=== PATIENT | female | born 1950 | race Caucasian/White ===

== ENCOUNTER 2023-10-03 05:46 | Inpatient (IN) | payer MEDICARE ==
[2023-10-03] MEDS: ONDANSETRON 4 MG/2 ML VIAL IVP STA ×2 (06:23→08:23)
[2023-10-03 06:24] LABS: Basophils % (A) 0 %; Eosinophils # (A) 0.2 k/uL (0-0.7); Eosinophils % (A) 1 %; HGB 14.4 gm/dL (11.4-16.0); Lymphocytes # (A) 1.8 k/uL (1.0-4.8); Lymphocytes % (A) 16 %; MCH 32.6 pg (25.0-35.0); MCHC 33.4 g/dL (31.0-37.0); MCV 97.5 fL (80.0-100.0); Mean Platelet Volume 9.2; Monocytes # (A) 0.6 k/uL (0-1.0); Monocytes % (A) 6 %; Neutrophils # (A) 8.4 k/uL (1.3-7.7); Neutrophils % (A) 76 %; Platelet Count 216 k/uL (150-450); RBC 4.41 m/uL (3.80-5.40); RDW 12.8 % (11.5-15.5)
[2023-10-03] MEDS: MORPHINE SULFATE 2 MG/ML SYRINGE IVP ONE (06:24)
[2023-10-03] MEDS: KETOROLAC 15 MG/ML 1 ML VIAL IVP STA (06:26)
[2023-10-03 06:35] LABS: ALT 20 U/L (4-34); African American GFR (CKD) 56 (>60 ml/min/1.73 sqM); Albumin 4.2 g/dL (3.5-5.0); Anion Gap 14 mmol/L; Blood Urea Nitrogen 20 mg/dL (7-17); Carbon Dioxide 21 mmol/L (22-30); Chloride 94 mmol/L (98-107); Creatine Kinase 148 U/L (30-135); Glucose 70 mg/dL (74-99); Non-African American GFR(CKD) 49 (>60 ml/min/1.73 sqM); Sodium 129 mmol/L (137-145); Total Bilirubin 0.7 mg/dL (0.2-1.3); Total Protein 7.1 g/dL (6.3-8.2)
[2023-10-03 06:36] LABS: AST 72 U/L (14-36); Alkaline Phosphatase 72 U/L (38-126); Magnesium 1.3 mg/dL (1.6-2.3); Potassium 4.8 mmol/L (3.5-5.1)
[2023-10-03 07:02] LABS: Glucose,Whole Blood 62 mg/dL (70-110)
--- NOTE | 2023-10-03 07:04 | ED ---
General Adult HPI - General Chief complaint: Back Pain/Injury Stated complaint: Back pain Time Seen by Provider: 10/03/23 05:59 Source: patient, EMS, RN notes reviewed Mode of arrival: EMS Limitations: no limitations - History of Present Illness Initial comments: 73-year-old female presents emergency department with chief complaint of fall, pain. Patient states that she fell on Wednesday in which her legs just gave out. States this happens often she has frequent falls. Patient states that she has right knee pain from the fall but also states she just hurts all over. She states she has numbness of her legs which is ongoing and states that she has been told she has neuropathy. She denies any chest pain. Patient states that she is on multiple medications and recently saw a new primary care physician. - Related Data Allergies Allergy/AdvReac Type Severity Reaction Status Date / Time Penicillins Allergy Nausea & Verified 10/03/23 05:54 Vomiting Review of Systems ROS Statement: Those systems with pertinent positive or pertinent negative responses have been documented in the HPI. ROS Other: All systems not noted in ROS Statement are negative. Past Medical History Past Medical History: Diabetes Mellitus, Hyperlipidemia, Hypertension, Rheumatoid Arthritis (RA), Sleep Apnea/CPAP/BIPAP History of Any Multi-Drug Resistant Organisms: None Reported Past Surgical History: No Surgical Hx Reported Past Psychological History: No Psychological Hx Reported Smoking Status: Current every day smoker Past Alcohol Use History: Daily Past Drug Use History: None Reported General Exam Limitations: no limitations General appearance: alert, in no apparent distress Head exam: Present: atraumatic, normocephalic, normal inspection Eye exam: Present: normal appearance, PERRL, EOMI. Absent: scleral icterus, conjunctival injection, periorbital swelling ENT exam: Present: normal exam, normal oropharynx, mucous membranes moist Neck exam: Present: normal inspection, full ROM. Absent: tenderness, meningismus, lymphadenopathy Respiratory exam: Present: normal lung sounds bilaterally. Absent: respiratory distress, wheezes, rales, rhonchi, stridor Cardiovascular Exam: Present: regular rate, normal rhythm, normal heart sounds. Absent: systolic murmur, diastolic murmur, rubs, gallop, clicks GI/Abdominal exam: Present: soft, normal bowel sounds. Absent: distended, tenderness, guarding, rebound, rigid Extremities exam: Present: other (Bilateral feet there is some mild erythematous brawny discoloration of the digits chronic vascular issues abrasion right knee, mild ecchymosis, full range of motion neurovascular intact remaining extremity exam within normal limits) Neurological exam: Present: alert, oriented X3 Skin exam: Present: warm, dry, intact, normal color. Absent: rash Course Vital Signs 10/03/23 10/03/23 05:48 07:35 Temperature 97.5 F L 97.6 F Pulse Rate 64 63 Respiratory 18 20 Rate Blood Pressure 117/64 126/68 O2 Sat by Pulse 97 94 L Oximetry Medical Decision Making - Medical Decision Making Was pt. sent in by a medical professional or institution (, PA, DIRECTOR OF HOTEL OPERATIONS, urgent care, hospital, or detention...) When possible be specific @ -No Did you speak to anyone other than the patient for history (EMS, parent, family, police, friend...)? What history was obtained from this source @ -No Did you review nursing and triage notes (agree or disagree)? Why? @ -I reviewed and agree with nursing and triage notes Were old charts reviewed (outside hosp., previous admission, EMS record, old EKG, old radiological studies, urgent care reports/EKG's, detention records)? Report findings @ -No old charts were reviewed Differential Diagnosis (chest pain, altered mental status, abdominal pain women, abdominal pain men, vaginal bleeding, weakness, fever, dyspnea, syncope, headache, dizziness, GI bleed, back pain, seizure, CVA, palpatations, mental health, musculoskeletal)? @ -[Differential Weakness: Hypoglycemia, shock, sepsis, hyponatremia, anemia, infection, CO, ETOH, adverse medicine reaction, overdose, stroke, this is not meant to be an all-inclusive list. EKG interpreted by me (3pts min.). @ -None X-rays interpreted by me (1pt min.). @ -[Chest x-ray shows evidence of left lower lobe pleural effusion, pneumonia X-ray right knee showing lateral tibial plateau avulsion fracture X-ray lumbar spine showing degenerative changes CT interpreted by me (1pt min.). @ -See to right knee is showing lateral tibial plateau fracture no other acute process U/S interpreted by me (1pt. min.). @ -[None done What testing was considered but not performed or refused? (CT, X-rays, U/S, labs)? Why? @ -None What meds were considered but not given or refused? Why? @ -None Did you discuss the management of the patient with other professionals (professionals i.e. , PA, DIRECTOR OF HOTEL OPERATIONS, lab, RT, psych nurse, high school social science teacher, musical engineer, teacher, chief credit officer, rn case manager)? Give summary @ -[Dr. Upton regarding x-ray and CT findings of tibial plateau fracture there is no emergent treatment patient does not need to be admitted for tibial plateau fracture. Dr. Stern for admission secondary to dehydration, hyponatremia, hypomagnesemia, alcohol abuse multiple falls Was smoking cessation discussed for >3mins.? @ -No Was critical care preformed (if so, how long)? @ -No Were there social determinants of health that impacted care today? How? (Homelessness, low income, unemployed, alcoholism, drug addiction, transportation, low edu. Level, literacy, decrease access to med. care, halfway, rehab)? @ -No Was there de-escalation of care discussed even if they declined (Discuss DNR or withdrawal of care, Hospice)? DNR status @ -No What co-morbidities impacted this encounter? (DM, HTN, Smoking, COPD, CAD, Cancer, CVA, ARF, Chemo, Hep., AIDS, mental health diagnosis, sleep apnea, morbid obesity)? @ -Alcohol abuse, diabetes, hypertension Was patient admitted / discharged? Hospital course, mention meds given and route, prescriptions, significant lab abnormalities, going to OR and other pertinent info. @ -[Admitted patient is presenting for generalized weakness, multiple falls. Patient states that she has been supplementing her pain control with alcohol intake. Patient states that she was on [place] prior. Patient states that she has had falls as her legs been giving out on her. She mild hyponatremia, hypomagnesemia, hyperglycemia. This more likely is related to poor fluid intake, alcohol abuse. Patient was started on IV antibiotics, blood cultures were drawn. Patient will be admitted with multiple consults. Undiagnosed new problem with uncertain prognosis? @ -No Drug Therapy requiring intensive monitoring for toxicity (Heparin, Nitro, Insulin, Cardizem)? @ -No Were any procedures done? @ -No Diagnosis/symptom? @ -Multiple falls, pneumonia, weakness, hyponatremia, hypomagnesemia, tibial plateau fracture Acute, or Chronic, or Acute on Chronic? @ -[Acute Uncomplicated (without systemic symptoms) or Complicated (systemic symptoms)? @ -Complicated Side effects of treatment? @ -[No Exacerbation, Progression, or Severe Exacerbation? @ -No Poses a threat to life or bodily function? How? (Chest pain, USA, CO, pneumonia, PE, COPD, DKA, ARF, appy, cholecystitis, CVA, Diverticulitis, Homicidal, Suicidal, threat to staff... and all critical care pts) @ -No - Lab Data Result diagrams: 10/03/23 06:15 10/03/23 06:15 Lab Results 10/03/23 10/03/23 10/03/23 Range/Units 06:15 06:15 07:00 WBC 11.0 H (3.8-10.6) k/uL RBC 4.41 (3.80-5.40) m/uL Hgb 14.4 (11.4-16.0) gm/dL Hct 43.0 (34.0-46.0) % MCV 97.5 (80.0-100.0) fL MCH 32.6 (25.0-35.0) pg MCHC 33.4 (31.0-37.0) g/dL RDW 12.8 (11.5-15.5) % Plt Count 216 (150-450) k/uL MPV 9.2 Neutrophils % 76 % Lymphocytes % 16 % Monocytes % 6 % Eosinophils % 1 % Basophils % 0 % Neutrophils # 8.4 H (1.3-7.7) k/uL Lymphocytes # 1.8 (1.0-4.8) k/uL Monocytes # 0.6 (0-1.0) k/uL Eosinophils # 0.2 (0-0.7) k/uL Basophils # 0.0 (0-0.2) k/uL Sodium 129 L (137-145) mmol/L Potassium 4.8 (3.5-5.1) mmol/L Chloride 94 L (98-107) mmol/L Carbon Dioxide 21 L (22-30) mmol/L Anion Gap 14 mmol/L BUN 20 H (7-17) mg/dL Creatinine 1.14 H (0.52-1.04) mg/dL Est GFR (CKD-EPI)AfAm 56 (>60 ml/min/1.73 sqM) Est GFR (CKD-EPI)NonAf 49 (>60 ml/min/1.73 sqM) Glucose 70 L (74-99) mg/dL POC Glucose (mg/dL) 62 L (70-110) mg/dL POC Glu Technical Expert ID Mindy Lam Calcium 10.0 (8.4-10.2) mg/dL Magnesium 1.3 L (1.6-2.3) mg/dL Total Bilirubin 0.7 (0.2-1.3) mg/dL AST 72 H (14-36) U/L ALT 20 (4-34) U/L Alkaline Phosphatase 72 (38-126) U/L Creatine Kinase 148 H (30-135) U/L Total Protein 7.1 (6.3-8.2) g/dL Albumin 4.2 (3.5-5.0) g/dL Serum Alcohol mg/dL Influenza Type A (PCR) (Not Detectd) Influenza Type B (PCR) (Not Detectd) RSV (PCR) (Not Detectd) SARS-CoV-2 (PCR) (Not Detectd) 10/03/23 10/03/23 10/03/23 Range/Units 07:03 07:22 07:43 WBC (3.8-10.6) k/uL RBC (3.80-5.40) m/uL Hgb (11.4-16.0) gm/dL Hct (34.0-46.0) % MCV (80.0-100.0) fL MCH (25.0-35.0) pg MCHC (31.0-37.0) g/dL RDW (11.5-15.5) % Plt Count (150-450) k/uL MPV Neutrophils % % Lymphocytes % % Monocytes % % Eosinophils % % Basophils % % Neutrophils # (1.3-7.7) k/uL Lymphocytes # (1.0-4.8) k/uL Monocytes # (0-1.0) k/uL Eosinophils # (0-0.7) k/uL Basophils # (0-0.2) k/uL Sodium (137-145) mmol/L Potassium (3.5-5.1) mmol/L Chloride (98-107) mmol/L Carbon Dioxide (22-30) mmol/L Anion Gap mmol/L BUN (7-17) mg/dL Creatinine (0.52-1.04) mg/dL Est GFR (CKD-EPI)AfAm (>60 ml/min/1.73 sqM) Est GFR (CKD-EPI)NonAf (>60 ml/min/1.73 sqM) Glucose (74-99) mg/dL POC Glucose (mg/dL) 68 L (70-110) mg/dL POC Glu Technical Expert ID Kerry Clement Calcium (8.4-10.2) mg/dL Magnesium (1.6-2.3) mg/dL Total Bilirubin (0.2-1.3) mg/dL AST (14-36) U/L ALT (4-34) U/L Alkaline Phosphatase (38-126) U/L Creatine Kinase (30-135) U/L Total Protein (6.3-8.2) g/dL Albumin (3.5-5.0) g/dL Serum Alcohol <10 mg/dL Influenza Type A (PCR) Not Detected (Not Detectd) Influenza Type B (PCR) Not Detected (Not Detectd) RSV (PCR) Not Detected (Not Detectd) SARS-CoV-2 (PCR) Not Detected (Not Detectd) 10/03/23 Range/Units 08:15 WBC (3.8-10.6) k/uL RBC (3.80-5.40) m/uL Hgb (11.4-16.0) gm/dL Hct (34.0-46.0) % MCV (80.0-100.0) fL MCH (25.0-35.0) pg MCHC (31.0-37.0) g/dL RDW (11.5-15.5) % Plt Count (150-450) k/uL MPV Neutrophils % % Lymphocytes % % Monocytes % % Eosinophils % % Basophils % % Neutrophils # (1.3-7.7) k/uL Lymphocytes # (1.0-4.8) k/uL Monocytes # (0-1.0) k/uL Eosinophils # (0-0.7) k/uL Basophils # (0-0.2) k/uL Sodium (137-145) mmol/L Potassium (3.5-5.1) mmol/L Chloride (98-107) mmol/L Carbon Dioxide (22-30) mmol/L Anion Gap mmol/L BUN (7-17) mg/dL Creatinine (0.52-1.04) mg/dL Est GFR (CKD-EPI)AfAm (>60 ml/min/1.73 sqM) Est GFR (CKD-EPI)NonAf (>60 ml/min/1.73 sqM) Glucose (74-99) mg/dL POC Glucose (mg/dL) 120 H (70-110) mg/dL POC Glu Technical Expert ID Magi Fuentes Calcium (8.4-10.2) mg/dL Magnesium (1.6-2.3) mg/dL Total Bilirubin (0.2-1.3) mg/dL AST (14-36) U/L ALT (4-34) U/L Alkaline Phosphatase (38-126) U/L Creatine Kinase (30-135) U/L Total Protein (6.3-8.2) g/dL Albumin (3.5-5.0) g/dL Serum Alcohol mg/dL Influenza Type A (PCR) (Not Detectd) Influenza Type B (PCR) (Not Detectd) RSV (PCR) (Not Detectd) SARS-CoV-2 (PCR) (Not Detectd) Disposition Clinical Impression: Dehydration, Hypomagnesemia, Pneumonia, Back pain, Weakness, Multiple falls, Tibial plateau fracture, right Disposition: ADMITTED IP TO THIS HOSP Is patient prescribed a controlled substance at d/c from ED?: No Referrals: None,Stated [REFERRING] - 1-2 days Time of Disposition: 08:43
--- NOTE | 2023-10-03 07:19 | XR ---
EXAMINATION TYPE: XR chest 2V DATE OF EXAM: 10/03/2023 COMPARISON: NONE HISTORY: Chest pain TECHNIQUE: Frontal and lateral views of the chest are obtained. FINDINGS: There is a hazy opacity obscuring the left hemidiaphragm and costophrenic angle most likel y a combination of small amount of pleural effusion and possibly left lower lobe atelectasis/pneumoni a. The right lung is clear. There is no pneumothorax. The pulmonary vasculature is not congested. The osseous structures are inta ct IMPRESSION: Acute cardiopulmonary disease involving left lung base as described above.
[2023-10-03] MEDS: MAGNESIUM OXIDE 400 MG TAB PO STA (07:20)
--- NOTE | 2023-10-03 07:22 | XR ---
Lumbar spine HISTORY: Pain COMPARISON: None TECHNIQUE: 3 views lumbar spine were obtained Throughout the lumbar spine there is moderate spondylosis and mild to moderate disc space narrowing g reatest at the L5-S1 level consistent with degenerative disc disease. There is no lumbar spine fractu re or malalignment. There is facet arthropathy at the L4-5 and L5-S1 levels. The sacrum and SI joints appear normal. IMPRESSION: 1. Multilevel [id number] degenerative disc disease moderate at the L4-5 at the L5-S1 level. 2. Facet arthropathy at the L4-5 and L5-S1 levels. 3. No lumbar spine fracture or malalignment.
[2023-10-03 07:23] LABS: Glucose,Whole Blood 68 mg/dL (70-110)
--- NOTE | 2023-10-03 07:26 | XR ---
Right knee HISTORY: Pain following fall. COMPARISON: None TECHNIQUE: 3 views right knee were obtained. FINDINGS: There is a tiny avulsion fracture of the lateral tibial plateau (Segond fracture). This is often asso ciated with a soft tissue injury involving the lateral joint capsule with associated ACL injury.. There is mild narrowing of the medial compartment of the knee indicating mild osteoarthritis. The pat ellofemoral compartment is normal and is no joint effusion. IMPRESSION: Segond fracture as described above.
[2023-10-03 08:16] LABS: Glucose,Whole Blood 120 mg/dL (70-110)
--- NOTE | 2023-10-03 08:16 | CT ---
EXAMINATION TYPE: CT knee RT wo con DATE OF EXAM: 10/03/2023 COMPARISON: None HISTORY: Fall onto RT knee, knee pain, unable to stand. CT DLP: 103.4 mGycm Automated exposure control for dose reduction was used. FINDINGS: There is a small lateral tibial plateau avulsion fracture/Segond fracture which can often be associat ed with significant internal derangement within the knee. MRI of the knee would be useful for further evaluation. No other fractures or focal intraosseous abnormality is seen. There is no joint effusion. There is mild narrowing of the patellofemoral compartment and medial compartment of the knee consiste nt with mild osteoarthritis. IMPRESSION: 1. SMALL AVULSION FRACTURE THE LATERAL TIBIAL PLATEAU/SEGOND FRACTURE DESCRIBED ABOVE. 2. MILD OSTEOARTHRITIS OF THE MEDIAL COMPARTMENT AND PATELLOFEMORAL COMPARTMENT. 3. NO JOINT EFFUSION.
[2023-10-03] MEDS ORDERED: NALOXONE 0.4 MG/ML 1 ML VIAL IV PRN (08:47)
[2023-10-03] MEDS ORDERED: LORazepam 2 MG/ML INJ IV PRN ×3 (08:47)
[2023-10-03] MEDS ORDERED: ONDANSETRON 4 MG/2 ML VIAL IVP PRN (08:47)
[2023-10-03] MEDS: SODIUM CHLORIDE 0.9% 1,000 ML IV SCH (09:41)
[2023-10-03] MEDS: AZITHROMYCIN 500 MG in SODIUM CHLORIDE 0.9% 250 ML IVPB STA (10:14)
[2023-10-03] MEDS: HYDROcodone/APAP 5-325MG 1 EACH TAB PO PRN (12:00)
[2023-10-03] MEDS ORDERED: ACETAMINOPHEN TAB 325 MG TAB PO PRN (16:12)
[2023-10-03] MEDS ORDERED: LACTULOSE 20 GM/30 ML CUP PO PRN (16:12)
[2023-10-03] MEDS ORDERED: CALCIUM CARBONATE 500 MG CHEWABLE PO PRN (16:12)
[2023-10-03] MEDS ORDERED: DEXTROSE 50% SYRINGE 50 ML IVP PRN ×2 (16:14)
--- NOTE | 2023-10-03 16:29 | P.HPIM ---
History of Present Illness H&P Date: 10/03/23 Chief Complaint: Fall This is a 73-year-old patient, who was following with Dr. Epstein. Chronic stable medical conditions include diabetes, hyperlipidemia, hypertension, rheumatoid arthritis, obstructive sleep apnea. Patient also cigarette smoker and drinks about a gallon of whiskey a week. Patient is accompanied by her cousin in the room. Patient has been getting incr easingly weak. Legs get weak. Sometimes just give way and fall down. This happened at least couple of times. Patient is found to have a small avulsion fracture of the lateral tibial plateau. Brace was put in the ER. Orthopedics was consulted. Patient has been feeling rather tired. Weak. Also patient blood glucose was noted to be running low. Patient states that she has been eating fine. Review of systems: GEN.: Tired EYES: None HEENT: None NECK: None RESPIRATORY: None CARDIOVASCULAR: None GASTROINTESTINAL: None GENITOURINARY: None MUSCULOSKELETAL: Joint pains, leg weakness especially in the thighs LYMPHATICS: None HEMATOLOGICAL: None PSYCHIATRY: None NEUROLOGICAL: None Social history: Lives alone. Does have a walker. Smokes daily. Drinks about a gallon of whiskey a week. Physical examination: VITAL SIGNS: 98, 65, 16, 125/80, 100% room air GENERAL: BMI 32.9,. Reclining bed tired EYES: Pupils equal. Conjunctiva shana l. HEENT: External appearance of nose and ears normal, oral cavity grossly normal. NECK: JVD not raised; masses not palpable. HEART: First and second heart sounds are normal; no edema. LUNGS: Respiratory rate normal; decreased breath sounds. ABDOMEN: Soft, nontender, liver spleen not palpable, no masses palpable. PSYCH: [Patient sleepy but can answer questions.. MUSCULOSKELETAL:No Clubbing/cyanosis;muscles-grossly intact. Brace over the r ight leg. NEUROLOGICAL: Cranial nerves grossly intact; no facial asymmetry, power and sensation grossly intact. LYMPHATICS: No lymph nodes palpable in the axilla and neck INVESTIGATIONS, reviewed in the clinical context: October 03: White count 11 hemoglobin 14.4 platelets 216 sodium 129 potassium 4.8 BUN 20 creatinine 1.14 blood glucose 70. Accu-Chek 62, 68 Magnesium 1.3 AST 72 ALT 20 Influenza type A, B, RSV, COVID-19: Not detected Chest x-ray film personally reviewed by me-some hyperinflation. Some cardiomegaly. 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 More so proximal in the lower extremity. Note that patient is also hyperglycemic. That could be contributing. Also patient got low magnesium. -Alcohol use disorder Thiamine.. CIWA scale -Alcoholic hepatitis -Chronic nicotine dependence cigarette smoker Nicotine patch -COPD no current smoker DuoNeb twice daily -Right leg: Small avulsion fracture of the lateral tibial plateau second fracture as described above. Secondary to fall Patient currently has a leg brace. Orthopedics Dr. Upton consulted -Diabetes mellitus type 2, uncontrolled with hypoglycemia Hold metformin and Prandin for now. Accu-Cheks with sliding scale insulin. -Essential hypertension Cut back Zestril to 20 mg nightly -Depression anxiety Effexor XR 75 mg a day -Hyperlipidemia Pravachol 80 mg a day Care was discussed with the patient and the cousin at the bedside. Questions answered. Given patient's extreme weakness falling. Now fracture patient need at least 2 nights over stay in the hospital. Past Medical History Past Medical History: Diabetes Mellitus, Hyperlipidemia, Hypertension, Rheumatoid Arthritis (RA), Sleep Apnea/CPAP/BIPAP History of Any Multi-Drug Resistant Organisms: None Reported Past Surgical History: No Surgical Hx Reported Past Psychological History: No Psychological Hx Reported Smoking Status: Current every day smoker Past Alcohol Use History: Daily Past Drug Use History: None Reported Medications and Allergies Home Medications Medication Instructions Recorded Confirmed Type Cyanocobalamin (Vitamin B-12) 1,000 mcg PO DAILY 10/03/23 10/03/23 History [Vitamin B-12] Ergocalciferol (Vitamin D2) 1,250 mcg PO SPRINGER 10/03/23 10/03/23 History [Drisdol (50,000 Iu)] Ibuprofen [Motrin] 800 mg PO Q8H PRN 10/03/23 10/03/23 History Pravastatin Sodium [Pravachol] 80 mg PO DAILY 10/03/23 10/03/23 History Repaglinide [Prandin] 1 mg PO AC-BID 10/03/23 10/03/23 History Venlafaxine HCl [Effexor XR] 75 mg PO DAILY 10/03/23 10/03/23 History lisinopriL [Zestril] 20 mg PO BID 10/03/23 10/03/23 History metFORMIN HCL 1,000 mg PO BID 10/03/23 10/03/23 History nadoloL 40 mg PO BID 10/03/23 10/03/23 History Allergies Allergy/AdvReac Type Severity Reaction Status Date / Time Penicillins Allergy Severe Nausea & Verified 10/03/23 10:10 Vomiting Physical Exam Vitals: Vital Signs Temp Pulse Pulse Resp BP BP Pulse Ox 10/03/23 10:48 97.5 F L 80 16 121/74 98 10/03/23 10:08 97.5 F L 61 20 107/71 97 10/03/23 07:35 97.6 F 63 20 126/68 94 L 10/03/23 05:48 97.5 F L 64 18 117/64 97 Intake and Output 10/02/23 10/03/23 10/03/23 22:59 06:59 14:59 Other: Weight 92.533 kg 92.533 kg Results CBC & Chem 7: 10/03/23 06:15 10/03/23 06:15 Labs: Abnormal Lab Results - Last 24 Hours (Table) 10/03/23 10/03/23 10/03/23 Range/Units 06:15 06:15 07:00 WBC 11.0 H (3.8-10.6) k/uL Neutrophils # 8.4 H (1.3-7.7) k/uL Sodium 129 L (137-145) mmol/L Chloride 94 L (98-107) mmol/L Carbon Dioxide 21 L (22-30) mmol/L BUN 20 H (7-17) mg/dL Creatinine 1.14 H (0.52-1.04) mg/dL Glucose 70 L (74-99) mg/dL POC Glucose (mg/dL) 62 L (70-110) mg/dL Magnesium 1.3 L (1.6-2.3) mg/dL AST 72 H (14-36) U/L Creatine Kinase 148 H (30-135) U/L 10/03/23 10/03/23 Range/Units 07:22 08:15 WBC (3.8-10.6) k/uL Neutrophils # (1.3-7.7) k/uL Sodium (137-145) mmol/L Chloride (98-107) mmol/L Carbon Dioxide (22-30) mmol/L BUN (7-17) mg/dL Creatinine (0.52-1.04) mg/dL Glucose (74-99) mg/dL POC Glucose (mg/dL) 68 L 120 H (70-110) mg/dL Magnesium (1.6-2.3) mg/dL AST (14-36) U/L Creatine Kinase (30-135) U/L Thrombosis Risk Factor Assmnt - Choose All That Apply Any of the Below Risk Factors Present?: Yes Other Risk Factors: Yes Each Risk Factor Represents 2 Points: Age 61-74 years Thrombosis Risk Factor Assessment Total Risk Factor Score: 2 Thrombosis Risk Factor Assessment Level: Low Risk
[2023-10-03 17:32] LABS: Glucose,Whole Blood 104 mg/dL (70-110)
[2023-10-03] MEDS: INSULIN ASPART (NovoLOG) 100 UNIT/ML VIAL SQ SCH (17:48)
[2023-10-03] MEDS: VENLAFAXINE HCL ER 75 MG CAP PO SCH (17:56)
[2023-10-03] MEDS: CYANOCOBALAMIN 500 MCG TAB PO SCH (17:56)
[2023-10-03] MEDS: PRAVASTATIN SODIUM 80 MG TAB PO SCH (17:56)
[2023-10-03] MEDS: NICOTINE 21MG/24HR PATCH TRANSDERM SCH (17:57)
[2023-10-03] MEDS: IPRATROPIUM-ALBUTEROL 3 ML NEB INHALATION SCH (19:45)
[2023-10-03] MEDS: MAGNESIUM OXIDE 400 MG TAB PO SCH (20:59)
[2023-10-03] MEDS: lisinopriL 20 MG TAB PO SCH (20:59)
[2023-10-03 21:22] LABS: Glucose,Whole Blood 104 mg/dL (70-110)
[2023-10-04 05:57] LABS: Glucose,Whole Blood 129 mg/dL (70-110)
[2023-10-04 06:21] LABS: Appearance,Urine Turbid (Clear); Bacteria,Urine Moderate /hpf; Bilirubin,Urine Negative (Negative); Blood,Urine Small (Negative); Color,Urine Yellow; Glucose,Urine (UA) Negative (Negative); Hyaline Casts,Urine 14 /lpf (0-2); Ketones,Urine Negative (Negative); Leukocyte Esterase,Urine Large (Negative); Mucus,Urine Few /hpf; Nitrite,Urine Negative (Negative); PH, Urine 5.5 (5.0-8.0); Protein,Urine 1+ (Negative); RBC,Urine 56 /hpf (0-5); Specific Gravity,Urine 1.016 (1.001-1.035); Squamous Epithelial Cell,Urine 46 /hpf (0-4); Urobilinogen,Urine <2.0 mg/dL (<2.0); WBC,Urine >182 /hpf (0-5); Waxy Casts,Urine 14 /lpf (0)
[2023-10-04] MEDS: THIAMINE 100 MG TAB PO SCH (09:00)
--- NOTE | 2023-10-04 10:21 | P.CNOR ---
History of Present Illness - HPI Consult date: 10/04/23 History of present illness: This is a 73-year-old female who is admitted for weakness and multiple falls. Orthopedics is consulted for evaluation of a right knee injury. Patient states that she fell at home on 09/28/2023 and landed on the right knee. Patient states that she did not have any pain or issues initially, but on 09/30/2023 she noticed tingling and subsequent weakness in both legs upon standing with her walker. Patient states that she has not been able to ambulate now secondary to weakness. Patient states that she has a history of spinal stenosis and follows with her primary care physician for this. Patient states that she did develop numbness in the back of the left leg right after she fell and has fallen at least 4 other times this month. Patient complains of pain in her upper back along with some weakness in the left lower extremity. Patient complains of tingling in the abdomen and upper thighs. In regards to the right knee, patient states that she has no pain or issues with the right knee at all. Patient's past medical history is significant for diabetes mellitus, hyperlipidemia, hypertension, rheumatoid arthritis and sleep apnea. Patient denies any fever/chills, chest pain, shortness breath, abdominal pain. Review of Systems See HPI. Past Medical History Past Medical History: Diabetes Mellitus, Hyperlipidemia, Hypertension, Rheu matoid Arthritis (RA), Sleep Apnea/CPAP/BIPAP History of Any Multi-Drug Resistant Organisms: None Reported Past Surgical History: No Surgical Hx Reported Past Psychological History: No Psychological Hx Reported Smoking Status: Current every day smoker Past Alcohol Use History: Daily Past Drug Use History: None Reported Medications and Allergies Home Medications Medication Instructions Recorded Confirmed Type Cyanocobalamin (Vitamin B-12) 1,000 mcg PO DAILY 10/03/23 10/03/23 History [Vitamin B-12] Ergocalciferol (Vitamin D2) 1,250 mcg PO SPRINGER 10/03/23 10/03/23 History [Drisdol (50,000 Iu)] Ibuprofen [Motrin] 800 mg PO Q8H PRN 10/03/23 10/03/23 History Pravastatin Sodium [Pravachol] 80 mg PO DAILY 10/03/23 10/03/23 History Repaglinide [Prandin] 1 mg PO AC-BID 10/03/23 10/03/23 History Venlafaxine HCl [Effexor XR] 75 mg PO DAILY 10/03/23 10/03/23 History lisinopriL [Zestril] 20 mg PO BID 10/03/23 10/03/23 History metFORMIN HCL 1,000 mg PO BID 10/03/23 10/03/23 History nadoloL 40 mg PO BID 10/03/23 10/03/23 History Allergies Allergy/AdvReac Type Severity Reaction Status Date / Time Penicillins Allergy Severe Nausea & Verified 10/03/23 10:10 Vomiting Physical Examination Osteopathic Statement: *. No significant issues noted on an osteopathic structural exam other than those noted in the History and Physical/Consult. On exam patient is resting comfortably in bed in no acute distress. Patient is alert and oriented 3. Right lower extremity: There is no tenderness to palpation over the right knee. Trace effusion. No erythema. Negative Maite's. There is no ligamentous in stability with varus or valgus stress. Patient has full active and passive range of motion of the right knee without pain or difficulty. Calf is soft and nontender to palpation. Sensation intact. Patient has full range of motion of the right foot and ankle. 5/5 strength of the right lower extremity. EHL intact. Neurovascular status and circulatory status are intact. Left lower extremity: Patient is able to actively flex and extend the left lower extremity, but has some difficulty with this compared to the right side. Patient has 4/5 strength of the left foot with resisted dorsiflexion and EHL. Patient has 5/5 strength in the left foot with resisted plantarflexion. Left lower extremity is warm and well-perfused. Calf is soft and nontender to palpation. There is mild tenderness to palpation over the upper back. There is no step-off or deformity. Patient moves both upper extremities without pain or difficulty. Results X-rays of the right knee are reviewed revealing a small, possibly chronic, avulsion fracture of the lateral plateau. Mild thinning of the medial joint space. A CT report of the right knee reveals: 1. Small avulsion fracture of the lateral tibial plateau/Segond fracture as described above. 2. Mild osteoarthritis of the medial compartment and patellofemoral compartment. 3. No joint effusion. X-ray report of the lumbar spine reveals: 1. Multilevel mild to moderate degenerative disc disease moderate at the L4-5 at the L5-S1 level. 2. Facet arthropathy at the L4-5 and L5-S1 levels. 3. No lumbar spine fracture or malalignment. - Labs Labs: Abnormal Lab Results - Last 24 Hours (Table) 10/04/23 10/04/23 Range/Units 05:56 05:58 POC Glucose (mg/dL) 129 H (70-110) mg/dL Urine Appearance Turbid H (Clear) Urine Protein 1+ H (Negative) Urine Blood Small H (Negative) Ur Leukocyte Esterase Large H (Negative) Urine RBC 56 H (0-5) /hpf Urine WBC >182 H (0-5) /hpf Urine WBC Clumps Many H (None) /hpf Ur Squamous Epith Cells 46 H (0-4) /hpf Urine Bacteria Moderate H (None) /hpf Hyaline Casts 14 H (0-2) /lpf Urine Mucus Few H (None) /hpf H & H 10/03/23 Range/Units 06:15 Hgb 14.4 (11.4-16.0) gm/dL Hct 43.0 (34.0-46.0) % Result Diagrams: 10/03/23 06:15 10/03/23 06:15 Assessment and Plan (1) Weakness of left lower extremity Current Visit: Yes Status: Acute Code(s): R29.898 - OTH SYMPTOMS AND SIGNS INVOLVING THE MUSCULOSKELETAL SYSTEM SNOMED Code(s): 589287689 (2) Multiple falls Current Visit: Yes Status: Acute Code(s): R29.6 - REPEATED FALLS SNOMED Code(s): 389042127 Plan: 1. On exam of the right knee the patient has no tenderness to palpation and she has full active range of motion of the right knee without pain or difficulty. X-ray and CT findings regarding the right knee could be chronic in nature due to the patient's history of multiple falls. Patient may discontinue use of her knee immobilizer and weight-bear as tolerated to the right lower extremity. 2. Due to the patient's lower extremity weakness, history of spinal stenosis and multiple falls a consult is put in for evaluation of her spine. The patient is seen and examined at bedside. I agree with the dictation above. The patient has been having troubles in her back and her lower extremities over the past several years. She feels that she has been having some worsening and is having multiple falls due to her legs giving out. She does have significant history of alcohol use and abuse and it is somewhat difficult to discern where her trouble stem. She is getting treatment with her alcohol use currently. Medicine is managing this. Nonetheless she also has lower extremity weakness and has been having multiple falls. Her knee is not painful and I think that the fractures may be chronic at that area. She does not need the knee brace as stated above. She may weight- bear as tolerated bilateral lower extremities. She does have significant weakness with hip flexion and knee extension on the left. She also has weakness with dorsiflexion on the left. She is having significant difficulty with her mobilization and ambulation due to this. She has shown some evidence of urinary retention as well. She is not having bowel dysfunction. She feels her weakness has worsened since her recent fall a few days ago. She has had workup in the past at her lumbar spine but with her worsening weakness at her lower extremities and her legs giving way with her recurrent falls, and her evidence of weakness on her physical exam with hip flexion and dorsiflexion and knee extension particularly on the left side weaker than the right, I think that new imaging with an MRI is necessary. I reviewed the x-rays which shows degenerative changes L particulate L4-5 and L5-S1. New MRI imaging which show if there is significant stenosis or new compressive change causing her lower extremity weakness stemming from her lumbar spine. This would help to direct treatment. I will order new lumbar MRI I think it is okay for her to try to mobilize with physical therapy we will have physical therapy see her for transfers and mobilization. The patient may have some improvement with steroid medication to see if it helps alleviate some of the nerve irritation to allow her to better ambulate and we will order the steroid as well. Will continue to follow her along with you.
[2023-10-04 12:33] LABS: Glucose,Whole Blood 110 mg/dL (70-110)
[2023-10-04] MEDS: methylPREDNISolone SOD SUCCI 125 MG/2 ML VIAL IV SCH (13:00)
[2023-10-04 17:36] LABS: Glucose,Whole Blood 204 mg/dL (70-110)
--- NOTE | 2023-10-04 18:46 | P.PN ---
Progress Note - Text Progress Note Date: 10/04/23 Chief Complaint: Fall This is a 73-year-old patient, who was following with Dr. Epstein. Chronic stable medical conditions include diabetes, hyperlipidemia, hypertension, rheumatoid arthritis, obstructive sleep apnea. Patient also cigarette smoker and drinks about a gallon of whiskey a week. Patient is accompanied by her cousin in the room. Patient has been getting increasingly weak. Legs get weak. Sometimes just give way and fall down. This happened at least couple of times. Patient is found to have a small avulsion fracture of the lateral tibial plateau. Brace was put in the ER. Orthopedics was consulted. Patient has been feeling rather tired. Weak. Also patient blood glucose was noted to be running low. Patient states that she has been eating fine. October 04: Patient states she has been having some chronic low back pain. Seen by orthopedics Dr. Gonzalez. Ordered MRI of the lumbar spine. Patient could barely get up with physical therapy. Citing weakness in the thigh. No bowel trouble. No urine trouble. Active Medications Acetaminophen (Acetaminophen Tab 325 Mg Tab) 650 mg PO Q6HR PRN PRN Reason: Mild Pain or Fever > 100.5 Hydrocodone Bitart/Acetaminophen (Hydrocodone/Apap 5-325mg 1 Each Tab) 1 each PO Q4HR PRN PRN Reason: Moderate Pain (Scale 4 to 6) Last Admin: 10/04/23 12:46 Dose: 1 each Albuterol/Ipratropium (Ipratropium-Albuterol 3 Ml Neb) 3 ml INHALATION RT-BID [facility] Last Admin: 10/04/23 09:23 Dose: 3 ml Calcium Carbonate/Glycine (Calcium Carbonate 500 Mg Chewable) 1,000 mg PO Q4HR PRN PRN Reason: Dyspepsia Cyanocobalamin (Cyanocobalamin 500 Mcg Tab) 1,000 mcg PO DAILY [facility] Last Admin: 10/04/23 09:00 Dose: 1,000 mcg Dextrose/Water (Dextrose 50% Syringe 50 Ml) 25 ml IVP PER PROTOCOL PRN; Protocol PRN Reason: Hypoglycemia Dextrose/Water (Dextrose 50% Syringe 50 Ml) 50 ml IVP PER PROTOCOL PRN; Protocol PRN Reason: Hypoglycemia Sodium Chloride (Saline 0.9%) 1,000 mls @ 75 mls/hr IV .[id number] [facility] Last Admin: 10/04/23 13:01 Dose: 75 mls/hr Insulin Aspart (Insulin Aspart (Novolog) 100 Unit/Ml Vial) 0 unit SQ AC-TID [facility]; Protocol Last Admin: 10/04/23 17:56 Dose: Not Given Lactulose (Lactulose 20 Gm/30 Ml Cup) 20 gm PO DAILY PRN PRN Reason: Constipation Lisinopril (Lisinopril 20 Mg Tab) 20 mg PO BID [facility] Last Admin: 10/04/23 09:00 Dose: 20 mg Lorazepam (Lorazepam 2 Mg/Ml Inj) 1 mg IV Q1HR PRN PRN Reason: CIWA 10 to 15 Lorazepam (Lorazepam 2 Mg/Ml Inj) 1 mg IV Q2HR PRN PRN Reason: CIWA 8 or 9 Lorazepam (Lorazepam 2 Mg/Ml Inj) 2 mg IV Q10M PRN PRN Reason: CIWA 16 or higher Stop: 10/05/23 08:47 Magnesium Oxide (Magnesium Oxide 400 Mg Tab) 400 mg PO BID [facility] Last Admin: 10/04/23 09:00 Dose: 400 mg Methylprednisolone Sodium Succinate (Methylprednisolone Sod Succi 125 Mg/2 Ml Vial) 60 mg IV Q12HR [facility] Last Admin: 10/04/23 13:00 Dose: 60 mg Nadolol (Nadolol 20 Mg Tab) 40 mg PO BID [facility] Last Admin: 10/04/23 09:01 Dose: 40 mg Naloxone HCl (Naloxone 0.4 Mg/Ml 1 Ml Vial) 0.2 mg IV Q2M PRN PRN Reason: Opioid Reversal Nicotine (Nicotine 21mg/24hr Patch) 1 patch TRANSDERM DAILY [facility] Last Admin: 10/04/23 09:01 Dose: Not Given Ondansetron HCl (Ondansetron 4 Mg/2 Ml Vial) 4 mg IVP Q8HR PRN PRN Reason: Nausea And Vomiting Pravastatin Sodium (Pravastatin Sodium 80 Mg Tab) 80 mg PO DAILY [facility] Last Admin: 10/04/23 09:00 Dose: 80 mg Thiamine HCl (Thiamine 100 Mg Tab) 100 mg PO DAILY [facility] Last Admin: 10/04/23 09:00 Dose: 100 mg Venlafaxine HCl (Venlafaxine Hcl Er 75 Mg Cap) 75 mg PO DAILY [facility] Last Admin: 10/04/23 09:00 Dose: 75 mg Social history: Lives alone. Does have a walker. Smokes daily. Drinks about a gallon of whiskey a week. Physical examination: VITAL SIGNS: 97.9, 65, 16, 127 x 78, 93% room air GENERAL: Sitting at the edge of the bed, EYES: Pupils equal. Conjunctiva shana l. HEENT: External appearance of nose and ears normal, oral cavity grossly normal. NECK: JVD not raised; masses not palpable. HEART: First and second heart sounds are normal; no edema. LUNGS: Respiratory rate normal; decreased breath sounds. ABDOMEN: Soft, nontender, liver spleen not palpable, no masses palpable. PSYCH: [Patient sleepy but can answer questions.. MUSCULOSKELETAL:No Clubbing/cyanosis;muscles-grossly intact. OA NEUROLOGICAL: Cranial nerves grossly intact; no facial asymmetry, finding it difficult to sit up from a sitting position. INVESTIGATIONS, reviewed in the clinical context: UA: Leukoesterase positive WBC 182 squamous epithelial 46 September 11: White count 11 hemoglobin 14.4 platelets 216 sodium 129 potassium 4.8 BUN 20 creatinine 1.14 blood glucose 70. Accu-Chek 62, 68 Magnesium 1.3 AST 72 ALT 20 Influenza type A, B, RSV, COVID-19: Not detected Chest x-ray film personally reviewed by me-some hyperinflation. Some cardiomegaly. 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 More so proximal in the lower extremity. Note that patient is also hypoglycemic. That could be contributing. Also patient got low magnesium. -Chronic lower back pain. Could be contributing to lower extremity weakness. Seen by orthopedics. Dr. Gonzalez. MRI of the spine ordered. -Alcohol use disorder Thiamine.. CIWA scale -Alcoholic hepatitis -Chronic nicotine dependence cigarette smoker Nicotine patch -COPD-current smoker DuoNeb twice daily -Right leg: Small avulsion fracture of the lateral tibial plateau second fracture as described above. Secondary to fall Being followed by orthopedics -Diabetes mellitus type 2, uncontrolled with hypoglycemia Resume metformin. Continue to hold Prandin. Accu-Cheks with sliding scale insulin. -Essential hypertension Cut back Zestril to 20 mg nightly -Depression anxiety Effexor XR 75 mg a day -Hyperlipidemia Pravachol 80 mg a day Past Medical History Past Medical History: Diabetes Mellitus, Hyperlipidemia, Hypertension, Rheumatoid Arthritis (RA), Sleep Apnea/CPAP/BIPAP History of Any Multi-Drug Resistant Organisms: None Reported Past Surgical History: No Surgical Hx Reported Past Psychological History: No Psychological Hx Reported Smoking Status: Current every day smoker Past Alcohol Use History: Daily Past Drug Use History: None Reported
[2023-10-04 19:45] LABS: Glucose,Whole Blood 268 mg/dL (70-110)
[2023-10-04] MEDS: metFORMIN 500 MG TAB PO SCH (20:14)
[2023-10-05 06:25] LABS: Glucose,Whole Blood 176 mg/dL (70-110)
[2023-10-05 08:07] LABS: African American GFR (CKD) 61 (>60 ml/min/1.73 sqM); Anion Gap 8 mmol/L; Blood Urea Nitrogen 24 mg/dL (7-17); Calcium 9.6 mg/dL (8.4-10.2); Carbon Dioxide 24 mmol/L (22-30); Chloride 100 mmol/L (98-107); Glucose 163 mg/dL (74-99); Non-African American GFR(CKD) 53 (>60 ml/min/1.73 sqM); Sodium 132 mmol/L (137-145)
[2023-10-05] MEDS: LORazepam 1 MG TAB PO STA (09:31)
--- NOTE | 2023-10-05 10:56 | CA ---
Transthoracic Echo Report Name: Kaykay Blount Age: 73 Gender: F : 1950 Exam Date: 10/04/2023 14:44 Exam Location: [place] [facility] Ht (in): 66 Wt (lb): 204 Ordering Physician: Jovanni Stern MD Attending/Referring Phys: Manufacturing Area Manager Wendi Dawkins RDCS Procedure CPT: Indications: smoker Cardiac Hx: Technical Quality: Technically difficult study Contrast 1: Total Dose (mL): Contrast 2: Total Dose (mL): MEASUREMENTS (Male / Female) Normal Values 2D ECHO LV Diastolic Diameter PLAX 5.3 cm 4.2 - 5.9 / 3.9 - 5.3 cm LV Systolic Diameter PLAX 3.5 cm IVS Diastolic Thickness 1.2 cm 0.6 - 1.0 / 0.6 - 0.9 cm LVPW Diastolic Thickness 0.9 cm 0.6 - 1.0 / 0.6 - 0.9 cm LV Relative Wall Thickness 0.4 Aortic Root Diameter 2.7 cm LA Systolic Diameter LX 4.4 cm 3.0 - 4.0 / 2.7 - 3.8 cm DOPPLER AV Peak Velocity 150.0 cm/s AV Peak Gradient 9.0 mmHg AV Mean Velocity 98.7 cm/s AV Mean Gradient 4.5 mmHg AV Velocity Time Integral 30.5 cm LVOT Peak Velocity 81.5 cm/s LVOT Peak Gradient 2.7 mmHg LVOT Velocity Time Integral 18.6 cm Mitral E Point Velocity 97.4 cm/s Mitral A Point Velocity 68.9 cm/s Mitral E to A Ratio 1.4 MV Deceleration Time 206.7 ms MV E' Velocity 8.7 cm/s Mitral E to MV E' Ratio 11.3 PV Peak Velocity 80.2 cm/s PV Peak Gradient 2.6 mmHg FINDINGS Left Ventricle Mildly increased septal wall thickness. Left ventricular ejection fraction is estimated at 50-55 %. Right Ventricle Right ventricle not well visualized. Right Atrium Right atrium not well visualized. Left Atrium Moderately increased left atrial diameter. Mitral Valve No mitral regurgitation. Aortic Valve Aortic valve not well visualized. Tricuspid Valve Tricuspid valve not well visualized. Pulmonic Valve Pulmonic valve not well visualized. Pericardium Normal pericardium. Aorta Normal size aortic root and proximal ascending aorta. CONCLUSIONS Technically difficult Mild increased left ventricle wall thickness Left ventricular ejection fraction 50-55% No mitral regurgitation No pericardial effusion Previewed by: Dr. Bassam Lei DO (Electronically Signed) Final Date: 05 October 2023 10:55
[2023-10-05 12:01] LABS: Glucose,Whole Blood 168 mg/dL (70-110)
--- NOTE | 2023-10-05 12:45 | MR ---
EXAMINATION TYPE: MR lumbar spine wo con DATE OF EXAM: 10/05/2023 10:58 AM CLINICAL INDICATION:Female, 73 years old with history of Bilateral lower extremity weakness left wors e than; Bilateral LE weakness/numbness, worse on left, falls. COMPARISON: None TECHNIQUE: Multi planar, multi sequence imaging was performed utilizing: T1-weighted, T2-weighted, a nd turbo inversion recovery imaging of the lumbar spine. IV Contrast: (None if empty) FINDINGS: Alignment: The lumbar vertebral bodies have preserved alignment. Cord: The conus medullaris and the distal spinal cord appear unremarkable with regards to their signa l intensity and morphology. Bones/Discs: Scattered metastatic disease is seen throughout the spine, examples include L3 vertebral body measuring up to 28 mm the inferior aspect of the L4 vertebral body measuring up to 17 mm among others. The L2 vertebral body has superior endplate deformity with underlying mass. Less than 25% height loss . No significant retropulsion. Bony edema within the L2 vertebral body is present. There is a sacrum metastatic disease with anterior and posterior soft tissue component. Series 301 im age 5. T12-L1: T12 vertebral body metastatic mass is also visualized which extends into the thecal sac. Seri es 801 image 41. This results in moderate spinal canal stenosis and moderate right neural foraminal s tenosis. The left neural foramen is patent. L1-L2: Soft tissue mass extends into the left neural foramen best appreciated on axial imaging series 801 image 35. There is mild left neural foraminal stenosis. The right neural foramen is patent. L2-L 3: Disc bulge and facet joint arthropathy result in moderate spinal canal and mild bilateral neural f oraminal stenosis. L3-L4: Disc bulge and facet joint arthropathy result in severe spinal canal and moderate to severe ri ght and moderate left neural foraminal stenosis. L4-L5: Abundance of epidural fat at this level narrows the thecal sac with disc bulge and facet joint arthropathy result in severe spinal canal and moderate bilateral neural foraminal stenosis. L5-S1: Abundance of epidural fat at this level narrows the thecal sac. The disc is rounded posterior morphology without significant spinal canal stenosis. Facet joint arthropathy with moderate to severe bilateral neural foraminal stenosis. No significant spinal canal or neural foraminal stenosis in the remainder of the visualized levels. Other findings: None. IMPRESSION: 1. Pathologic fracture of the superior endplate of L2. 2. Evidence for metastatic disease throughout the osseous structures with soft tissue component exte nding away from the anterior sacrum and posteriorly towards the thecal sac at T12 as well as at the l evel of the left neural foramen of L1-L2. Correlate with history of malignancy. Cardiac workup recomm ended. 3. Multilevel degeneration changes as described above with L3-L4 and L4-L5 severe spinal canal steno sis.
[2023-10-05 17:24] LABS: Glucose,Whole Blood 199 mg/dL (70-110)
--- NOTE | 2023-10-05 19:27 | P.PN ---
Progress Note - Text Progress Note Date: 10/05/23 Chief Complaint: Fall This is a 73-year-old patient, who was following with Dr. Epstein. Chronic stable medical conditions include diabetes, hyperlipidemia, hypertension, rheumatoid arthritis, obstructive sleep apnea. Patient also cigarette smoker and drinks about a gallon of whiskey a week. Patient is accompanied by her cousin in the room. Patient has been getting increasingly weak. Legs get weak. Sometimes just give way and fall down. This happened at least couple of times. Patient is found to have a small avulsion fracture of the lateral tibial plateau. Brace was put in the ER. Orthopedics was consulted. Patient has been feeling rather tired. Weak. Also patient blood glucose was noted to be running low. Patient states that she has been eating fine. October 04: Patient states she has been having some chronic low back pain. Seen by orthopedics Dr. Gonzalez. Ordered MRI of the lumbar spine. Patient could barely get up with physical therapy. Citing weakness in the thigh. No bowel trouble. No urine trouble. October 05: Laying in bed. Still feeling weakness numbness lower extremity. Saw the patient this morning. Was pending MRI at that time. Later MRI showing pathologic fracture of the superior endplate L2. Evidence for metastatic disease throughout the osseous structures with soft tissue component extending IV from the anterior sacrum towards the thecal sac at T12 as well as the level of left neural foramina at L1-L2. Multilevel DJD. Dr. Gonzalez from OA spine is on the case including oncology consulted. Active Medications Acetaminophen (Acetaminophen Tab 325 Mg Tab) 650 mg PO Q6HR PRN PRN Reason: Mild Pain or Fever > 100.5 Hydrocodone Bitart/Acetaminophen (Hydrocodone/Apap 5-325mg 1 Each Tab) 1 each PO Q4HR PRN PRN Reason: Moderate Pain (Scale 4 to 6) Last Admin: 10/05/23 17:27 Dose: 1 each Albuterol/Ipratropium (Ipratropium-Albuterol 3 Ml Neb) 3 ml INHALATION RT-BID [facility] Last Admin: 10/05/23 09:33 Dose: 3 ml Calcium Carbonate/Glycine (Calcium Carbonate 500 Mg Chewable) 1,000 mg PO Q4HR PRN PRN Reason: Dyspepsia Cyanocobalamin (Cyanocobalamin 500 Mcg Tab) 1,000 mcg PO DAILY [facility] Last Admin: 10/05/23 08:12 Dose: 1,000 mcg Dextrose/Water (Dextrose 50% Syringe 50 Ml) 25 ml IVP PER PROTOCOL PRN; Protocol PRN Reason: Hypoglycemia Dextrose/Water (Dextrose 50% Syringe 50 Ml) 50 ml IVP PER PROTOCOL PRN; Protocol PRN Reason: Hypoglycemia Sodium Chloride (Saline 0.9%) 1,000 mls @ 75 mls/hr IV .[id number] [facility] Last Admin: 10/05/23 17:26 Dose: 75 mls/hr Insulin Aspart (Insulin Aspart (Novolog) 100 Unit/Ml Vial) 0 unit SQ AC-TID [facility]; Protocol Last Admin: 10/05/23 17:27 Dose: Not Given Lactulose (Lactulose 20 Gm/30 Ml Cup) 20 gm PO DAILY PRN PRN Reason: Constipation Lisinopril (Lisinopril 20 Mg Tab) 20 mg PO BID [facility] Last Admin: 10/05/23 08:11 Dose: 20 mg Lorazepam (Lorazepam 2 Mg/Ml Inj) 1 mg IV Q1HR PRN PRN Reason: CIWA 10 to 15 Lorazepam (Lorazepam 2 Mg/Ml Inj) 1 mg IV Q2HR PRN PRN Reason: CIWA 8 or 9 Magnesium Oxide (Magnesium Oxide 400 Mg Tab) 400 mg PO BID [facility] Last Admin: 10/05/23 08:11 Dose: 400 mg Metformin HCl (Metformin 500 Mg Tab) 1,000 mg PO AC-BID [facility] Last Admin: 10/05/23 17:26 Dose: 1,000 mg Methylprednisolone Sodium Succinate (Methylprednisolone Sod Succi 125 Mg/2 Ml Vial) 60 mg IV Q12HR [facility] Last Admin: 10/05/23 08:11 Dose: 60 mg Nadolol (Nadolol 20 Mg Tab) 40 mg PO BID [facility] Last Admin: 10/05/23 08:12 Dose: 40 mg Naloxone HCl (Naloxone 0.4 Mg/Ml 1 Ml Vial) 0.2 mg IV Q2M PRN PRN Reason: Opioid Reversal Nicotine (Nicotine 21mg/24hr Patch) 1 patch TRANSDERM DAILY [facility] Last Admin: 10/05/23 09:31 Dose: Not Given Ondansetron HCl (Ondansetron 4 Mg/2 Ml Vial) 4 mg IVP Q8HR PRN PRN Reason: Nausea And Vomiting Pravastatin Sodium (Pravastatin Sodium 80 Mg Tab) 80 mg PO DAILY [facility] Last Admin: 10/05/23 08:12 Dose: 80 mg Thiamine HCl (Thiamine 100 Mg Tab) 100 mg PO DAILY [facility] Last Admin: 10/05/23 08:12 Dose: 100 mg Venlafaxine HCl (Venlafaxine Hcl Er 75 Mg Cap) 75 mg PO DAILY [facility] Last Admin: 10/05/23 08:12 Dose: 75 mg Social history: Lives alone. Does have a walker. Smokes daily. Drinks about a gallon of whiskey a week. Physical examination: VITAL SIGNS: 97.9, 68, 18, 128 x 65, 97% room air GENERAL: Lying in bed EYES: Pupils equal. Conjunctiva shana l. HEENT: External appearance of nose and ears normal, oral cavity grossly normal. NECK: JVD not raised; masses not palpable. HEART: First and second heart sounds are normal; no edema. LUNGS: Respiratory rate normal; decreased breath sounds. ABDOMEN: Soft, nontender, liver spleen not palpable, no masses palpable. PSYCH: [Patient sleepy but can answer questions.. MUSCULOSKELETAL:No Clubbing/cyanosis;muscles-grossly intact. OA NEUROLOGICAL: Cranial nerves grossly intact; no facial asymmetry, weakness of both lower extremity INVESTIGATIONS, reviewed in the clinical context: MRI spine [pathological fracture superior endplate of L2. Evidence for metastatic disease throughout the osseous structures with soft tissue component extending away from the anterior sacrum and posterior lead towards the thecal sac at T12 as well as the level of the left neural foramina L1-L2. Multilevel DJD including L3-L4 and L4-L5 with severe spinal canal stenosis. October 05: Sodium 132 potassium 5 BUN 24 creatinine 1.07 UA: Leukoesterase positive WBC 182 squamous epithelial 46 October 03: White count 11 hemoglobin 14.4 platelets 216 sodium 129 potassium 4.8 BUN 20 creatinine 1.14 blood glucose 70. Accu-Chek 62, 68 Magnesium 1.3 AST 72 ALT 20 Influenza type A, B, RSV, COVID-19: Not detected Chest x-ray film personally reviewed by me-some hyperinflation. Some cardiomegaly. Smoker Assessment and plan: -Acute on chronic low back pain causing falls: Pathological fracture superior endplate of L2. Evidence for metastatic disease throughout the osseous structures with soft tissue component extending away from the anterior sacrum and posterior lead towards the thecal sac at T12 as well as the level of the left neural foramina L1-L2. Multilevel DJD including L3-L4 and L4-L5 with severe spinal canal stenosis. Dr. Freida Gonzalez from orthopedic spine consulted. Dr. Harmon from oncology consulted. -Alcohol use disorder Thiamine.. CIWA scale -Alcoholic hepatitis -Chronic nicotine dependence cigarette smoker Nicotine patch -COPD-current smoker DuoNeb twice daily -Right leg: Small avulsion fracture of the lateral tibial plateau second fracture as described above. Secondary to fall Being followed by orthopedics -Diabetes mellitus type 2, uncontrolled with hypoglycemia Resume metformin. Continue to hold Prandin. Accu-Cheks with sliding scale insulin. -Essential hypertension Cut back Zestril to 20 mg nightly -Depression anxiety Effexor XR 75 mg a day -Hyperlipidemia Pravachol 80 mg a day Patient being followed by sean Gonzalez, oncology consulted. Will need biopsy of the soft tissue. Past Medical History Past Medical History: Diabetes Mellitus, Hyperlipidemia, Hypertension, Rheumatoid Arthritis (RA), Sleep Apnea/CPAP/BIPAP History of Any Multi-Drug Resistant Organisms: None Reported Past Surgical History: No Surgical Hx Reported Past Psychological History: No Psychological Hx Reported Smoking Status: Current every day smoker Past Alcohol Use History: Daily Past Drug Use History: None Reported
[2023-10-05 20:21] LABS: Glucose,Whole Blood 181 mg/dL (70-110)
[2023-10-06 04:58] LABS: Glucose,Whole Blood 158 mg/dL (70-110)
[2023-10-06] MEDS: CYCLOBENZAPRINE 5 MG TAB PO SCH (10:47)
[2023-10-06] MEDS: PANTOPRAZOLE 40 MG/10 ML VIAL IVP SCH (12:01)
[2023-10-06] MEDS: DEXAMETHASONE SOD PHOSPHATE 10 MG/ML 1 ML VIAL IVP STA (12:02)
[2023-10-06] MEDS: IOPAMIDOL CONTRAST (ORAL USE) VIAL PO PRN (12:03)
[2023-10-06 12:22] LABS: Glucose,Whole Blood 157 mg/dL (70-110)
--- NOTE | 2023-10-06 13:50 | P.CONS ---
History of Present Illness - Reason for Consult Consult date: 10/06/23 bone mets, unknown primary Requesting physician: Freida Gonzalez - Chief Complaint falls, weakness - History of Present Illness Mrs. Chilel is a 73-year-old female we have been asked to see because of bone lesions. On lumbar spine MRI the report reads there is a pathological fracture at L2 as well as a soft tissue mass at the sacrum extending into the lower thoracic area. When discussing with patient she said that she been having pain in the lower back for few years. This was associated with falls. More recently though, the falls have been more frequent and now associated with numbness of the thighs and the pelvis area, numbness has progressed to include her feet and ankles. She fell really hard last week onto her knees, the pain in her knee persisted and progressed, that is why she came to the hospital for evaluation. Reports that she can tell when she needs to have a bowel movement or urinate but the sensation is significantly decreased. She denies any cancer history, she has never had a mammogram, she states a colonoscopy a long time ago. Patient is a 1 pack/day smoker. She denies any recent changes in her breathing, no difficulty swallowing or painful swallowing, no unintentional weight loss, nausea or vomiting, changes in stool caliber or consistency. Review of Systems 14 point review of systems is negative except as stated in HPI Past Medical History Past Medical History: Diabetes Mellitus, Hyperlipidemia, Hypertension, Rheumatoid Arthritis (RA), Sleep Apnea/CPAP/BIPAP History of Any Multi-Drug Resistant Organisms: None Reported Past Surgical History: No Surgical Hx Reported Past Psychological History: No Psychological Hx Reported Smoking Status: Current every day smoker Past Alcohol Use History: Daily Past Drug Use History: None Reported Medications and Allergies Home Medications Medication Instructions Recorded Confirmed Type Cyanocobalamin (Vitamin B-12) 1,000 mcg PO DAILY 10/03/23 10/03/23 History [Vitamin B-12] Ergocalciferol (Vitamin D2) 1,250 mcg PO SPRINGER 10/03/23 10/03/23 History [Drisdol (50,000 Iu)] Ibuprofen [Motrin] 800 mg PO Q8H PRN 10/03/23 10/03/23 History Pravastatin Sodium [Pravachol] 80 mg PO DAILY 10/03/23 10/03/23 History Repaglinide [Prandin] 1 mg PO AC-BID 10/03/23 10/03/23 History Venlafaxine HCl [Effexor XR] 75 mg PO DAILY 10/03/23 10/03/23 History lisinopriL [Zestril] 20 mg PO BID 10/03/23 10/03/23 History metFORMIN HCL 1,000 mg PO BID 10/03/23 10/03/23 History nadoloL 40 mg PO BID 10/03/23 10/03/23 History Allergies Allergy/AdvReac Type Severity Reaction Status Date / Time Penicillins Allergy Severe Nausea & Verified 10/03/23 10:10 Vomiting Physical Exam Vitals: Vital Signs Temp Pulse Pulse Resp BP BP Pulse Ox 10/06/23 08:39 68 10/06/23 08:25 68 10/06/23 07:22 98.6 F 62 16 160/88 97 10/06/23 04:55 157/85 10/06/23 00:52 97.4 F L 64 19 196/86 94 L 10/05/23 20:09 97.4 F L 65 18 152/74 95 10/05/23 14:00 97.9 F 68 18 128/65 97 10/05/23 09:44 72 10/05/23 09:33 72 Intake and Output 10/05/23 10/06/23 10/06/23 22:59 06:59 14:59 Output Total 400 925 Balance -400 -925 Output: Urine 400 925 Other: Voiding Method Indwelling Catheter - Constitutional General appearance: cooperative, mild distress, obese - EENT Eyes: anicteric sclerae, EOMI ENT: hearing grossly normal, normal oropharynx - Neck Neck: no lymphadenopathy - Respiratory Respiratory: bilateral: diminished - Cardiovascular Rhythm: regular Heart sounds: normal: S1, S2 Abnormal Heart Sounds: no systolic murmur, no diastolic murmur, no rub, no S3 Gallop, no S4 Gallop, no click, no other leg Peripheral Edema: bilateral: None - Gastrointestinal General gastrointestinal: no absent bowel sounds, no decreased bowel sounds, no distended, no hepatomegaly, no hyperactive bowel sounds, normal bowel sounds, no organomegaly, no rigid, no scaphoid, soft, no splenomegaly, no tenderness, no umbilical hernia, no ventral hernia - Integumentary Integumentary: normal - Neurologic Bilateral lower extremity weakness, left greater than right. Lack of/very poor tactile sensation on the tops of thighs. - Musculoskeletal Lower extremity weakness - Psychiatric Psychiatric: A&O x's 3, appropriate affect, intact judgment & insight Results CBC & Chem 7: 10/03/23 06:15 10/05/23 07:06 Labs: Abnormal Lab Results - Last 24 Hours (Table) 10/05/23 10/05/23 10/05/23 Range/Units 11:59 17:22 20:19 POC Glucose (mg/dL) 168 H 199 H 181 H (70-110) mg/dL 10/06/23 Range/Units 04:57 POC Glucose (mg/dL) 158 H (70-110) mg/dL Microbiology - Last 24 Hours (Table) 10/03/23 09:30 Blood Culture - Preliminary Blood 10/03/23 09:15 Blood Culture - Preliminary Blood Comments: X-ray reports reviewed Lumbar spine MRI report reviewed Assessment and Plan (1) Sacral mass Current Visit: Yes Status: Acute Priority: High Code(s): M53.3 - SACROCOCC YGEAL DISORDERS, NOT ELSEWHERE CLASSIFIED SNOMED Code(s): 515947990548468 (2) Back pain Current Visit: Yes Status: Acute Priority: High Code(s): M54.9 - DORSALGIA, UNSPECIFIED SNOMED Code(s): 164425621 (3) Multiple falls Current Visit: Yes Status: Acute Priority: High Code(s): R29.6 - REPEATED FALLS SNOMED Code(s): 588152535 (4) Weakness of left lower extremity Current Visit: Yes Status: Acute Priority: High Code(s): R29.898 - OTH SYMPTOMS AND SIGNS INVOLVING THE MUSCULOSKELETAL SYSTEM SNOMED Code(s): 021033856 Plan: Sacral mass, bone lesions, lower extremity numbness and weakness -Imaging reports reviewed with patient. Definitely concerning for a malignant process. -Case discussed with Orthopedic Surgery. Pending their review of thoracic MRI and if it is recommend surgery needed urgently or if surgery is not urgent at this time. -Case discussed with Radiation Oncologist. If risk of impending cord compression is low/lower, and if patient's symptoms can be managed with ster oids, then radiation will be an appropriate modality to begin with. Pending his review of case and recommendations. -Bolus dose of 8 mg of dexamethasone IV given. Additional doses of 6 mg every 6 hours ordered. PPI ordered twice daily. -Patient's complaining of muscle spasms, muscle relaxer ordered. -Pending CT chest abdomen and pelvis to assess for a possible primary. Nuclear medicine bone scan ordered to further assess the skeletal system. -All of the above was discussed with the patient and she was agreeable to proceed with all of the testing that has been recommended -We will continue to follow with patient closely. Further recommendations to follow. Doctor attests: I performed a history and physical examination of this patient, developed impression and plan of care. Discussed with dictator. I agree with dictators note, documented as a scribe.
--- NOTE | 2023-10-06 14:02 | P.PN ---
Progress Note - Text Progress Note Date: 10/05/23 Orthopedic spine: History of present illness: Patient is a pleasant 73-year-old female who is seen and examined at bedside for follow-up evaluation of her lumbar spine. Since being seen and examined she states she has not had any significant improvement of her symptoms and feels her symptoms have worsened overall. She does admit to having difficulty with her bilateral lower extremities with weakness and low back pain over the past couple years but feels her symptoms have significantly worsened recently. She states she did sustain a fall last 09/28/2023, but was able to ambulate did not have any difficulties after that. She states on Wednesday she began to have difficulty with ambulation and feeling that her legs would give out on her. She started to ambulate with assistance of a cane. Her symptoms progressed and she had to transition to a walker. She is having difficulty with ambulating and has difficulty standing on her left lower extremity. She presented to the hospital for further evaluation. She also has numbness and tingling over the anterior thighs and states it now radiates down both of her lower extremities. She feels some numbness within her pelvis. She has been experiencing urinary retention and has a Stephens catheter intact. Today she states since her admission in the hospital she is also experiencing thoracic pain near the bra line. We did discuss that her lumbar MRI imaging shows bony changes that appear to represent metastatic disease. Patient is not known to have a previous cancer diagnosis. We did discuss we will plan to obtain further imaging and further consultation with other medical providers based on the results of the MRI. Patient has been seen and examined by medicine for multiple other medical diagnoses including diabetes mellitus, hyperlipidemia, hypertension, and current everyday smoker. She does states she has sustained multiple falls over the past month. She currently denies any injuries at the time of the falls. Physical exam: Patient is awake, alert, and oriented 3 Vital signs stable Good chest excursion with deep inspiration and expiration Examination of thoracic and lumbar spine reveals skin is intact with no abrasions, lacerations, or bruises; no erythema, purulence or signs of infection Some pain with palpation along the midline of the mid thoracic spine Dorsiflexion, plantarflexion, and extensor hallucis longus positive sustained bilaterally Weakness bilaterally with hip flexion and knee extension with weakness most significant on the left No signs or symptoms of DVT; no calf pain No pain with internal and external rotation of the hips bilaterally Neurovascularly intact Stephens catheter intact Pertinent studies: MRI of the lumbar spine taken on 10/05/2023: Scattered metastatic disease seen throughout the lumbar spine; sacrum metastatic disease with anterior and posterior soft tissue component; L2 vertebral body superior endplate deformity with underlying mass with bony edema; T12 vertebral body metastatic mass with extension to the thecal sac with moderate spinal canal stenosis and moderate right neuroforaminal stenosis; L1-2 soft tissue mass extends into the left foramen with mild left foraminal stenosis; L2-3 disc bulge and facet arthropathy with moderate spinal canal stenosis and mild bilateral neural foraminal stenosis; L3-4 disc bulge and facet joint arthropathic resulting in severe spinal canal stenosis and moderate severe right and moderate left neuroforaminal stenosis; L4-5 abundance of epidural fat with disc bulge and facet joint arthropathy resulting in severe spinal canal stenosis with moderate bilateral foraminal stenosis; L5-S1 abundance of epidural fat and facet joint arthropathy with moderate to severe bilateral foraminal stenosis Assessment: Inability to ambulate due to lower extremity weakness Lower extremity leg weakness Scattered metastatic disease throughout the lumbar spine without known primary cancer L2 pathologic fracture at the superior endplate L3-4 and L4-5 severe spinal stenosis with neuroforaminal stenosis T12 vertebral body metastatic mass with extension to the thecal sac with moderate spinal canal stenosis and moderate right neuroforaminal stenosis Sacral metastatic disease with anterior posterior soft tissue component Lower extremity radiculopathy Thoracic back pain Lumbar pain Urinary retention History of fall multiple falls Plan: 1. Patient does continue to have significant difficulty with her lower extremities. She is unable to weight-bear on the left lower extremity. She has had difficulty over the past couple years but her symptoms have been significantly worsening over the past week and a half. She has lower extremity radiculopathy with weakness. We have obtained lumbar MRI imaging which does show significant multilevel spinal stenosis at L3-4 and L4-5. 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 Currently, we will plan to obtain nuclear medicine whole-body bone scan imaging as well as thoracic MRI imaging. We did discuss her MRI imaging and that we will plan to obtain further imaging. We also discussed the possibility of bracing but that we would wait to discuss the possibility of bracing depending on her other imaging. If she were to have a thoracic compression fracture we may plan to prescribe a TLSO brace. Currently, patient has been unable to weight-bear and is lying in bed. She would not need a brace while lying in bed. Patient does agree this is a good plan of care for waiting for treatment until further imaging is performed. We did discuss she does have multilevel stenosis at L3-4 and L4-5 and could be a candidate for surgical intervention if she were to fail conservative treatment options. We also did discuss that given her metastatic changes at her spine we should obtain further imaging to try to obtain a primary diagnosis. We discussed we will plan for consultation with hematology/oncology. Will plan to follow-up with the patient. Will discuss plan of care in regards to her lumbar spine in greater detail depending on further imaging. 2. She will continue to be seen and examined by medicine as well
--- NOTE | 2023-10-06 14:07 | P.PN ---
Progress Note - Text Progress Note Date: 10/06/23 Orthopedic spine: History of present illness: Patient is a pleasant 73-year-old female who is seen and examined at bedside for follow-up evaluation of her lumbar spine. Since being seen and examined yesterday she has not had any significant improvement of her symptoms. She did attempt to stand at the bedside with assistance and had some difficulty. They had difficulty getting her back to the bed and they had to sit her on the floor. They were able to get her back into bed without any difficulty. She is currently scheduled to undergo nuclear medicine whole-body bone scan testing and CT of the abdomen pelvis, which was ordered by medicine, and approximate 1:30 PM and 1:45 PM today. She does admit to having difficulty with her bilateral lower extremities with weakness and low back pain over the past couple years but feels her symptoms hav e significantly worsened recently. She states she did sustain a fall last 09/28/2023, but was able to ambulate did not have any difficulties after that. She states on Wednesday she began to have difficulty with ambulation and feeling that her legs would give out on her. She started to ambulate with assistance of a cane. Her symptoms progressed and she had to transition to a walker. She is having difficulty with ambulating and has difficulty standing on her left lower extremity. She presented to the hospital for further evaluation. She also has numbness and tingling over the anterior thighs and states it now radiates down both of her lower extremities. She feels some numbness within her pelvis. She has been experiencing urinary retention and has a Stephens catheter intact. Today she states since her admission in the hospital she also continues to experience thoracic pain near the bra line. We did discuss that her lumbar MRI imaging showing bony changes in further detail today that appear to represent metastatic disease. Patient is not known to have a previous cancer diagnosis. We also ordered thoracic MRI imaging which is pending. Patient has been seen and examined by medicine for multiple other medical diagnoses including diabetes mellitus, hyperlipidemia, hypertension, and current everyday smoker. She does states she has sustained multiple falls over the past month. She currently denies any injuries at the time of the falls. Patient has been seen and examined by oncology today who plan to start the patient on steroid medication. They are also planning for cyclobenzaprine. Hematology oncology has consulted radiation oncology as well. Physical exam: Patient is awake, alert, and oriented 3 Vital signs stable Good chest excursion with deep inspiration and expiration Dorsiflexion, plantarflexion, and extensor hallucis longus positive sustained bilaterally Weakness bilaterally with hip flexion and knee extension with weakness most significant on the left No signs or symptoms of DVT; no calf pain No pain with internal and external rotation of the hips bilaterally Neurovascularly intact Stephens catheter intact Pertinent studies: MRI of the lumbar spine taken on 10/05/2023: Scattered metastatic disease seen throughout the lumbar spine; sacrum metastatic disease with anterior and posterior soft tissue component; L2 vertebral body superior endplate deformity with underlying mass with bony edema; T12 vertebral body metastatic mass with extension to the thecal sac with moderate spinal canal stenosis and moderate right neuroforaminal stenosis; L1-2 soft tissue mass extends into the left foramen with mild left foraminal stenosis; L2-3 disc bulge and facet arthropathy with moderate spinal canal stenosis and mild bilateral neural foraminal stenosis; L3-4 disc bulge and facet joint arthropathic resulting in severe spinal canal stenosis and moderate severe right and moderate left neuroforaminal stenosis; L4-5 abundance of epidural fat with disc bulge and facet joint arthropathy resulting in severe spinal canal stenosis with moderate bilateral foraminal stenosis; L5-S1 abundance of epidural fat and facet joint arthropathy with moderate to severe bilateral foraminal stenosis Assessment: Inability to ambulate due to lower extremity weakness Lower extremity leg weakness 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 She appears to have extensive metastatic disease and we do need further imaging results. Currently nuclear medicine whole-body bone scan and CT of the abdomen pelvis is scheduled to be performed this afternoon. Thoracic MRI imaging has also been ordered. 1. Patient does continue to have significant difficulty with her lower extremities. She is unable to weight-bear on the left lower extremity. She has had difficulty over the past couple years but her symptoms have been significantly worsening over the past week and a half. She has lower extremity radiculopathy with weakness. We have obtained lumbar MRI imaging which does show significant multilevel spinal stenosis at L3-4 and L4-5. 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 Currently, we will plan to obtain nuclear medicine whole-body bone scan imaging as well as thoracic MRI imaging. We did discuss her MRI imaging and that we will plan to obtain further imaging. We also discussed the possibility of bracing but that we would wait to discuss the possibility of bracing depending on her other imaging. If she were to have a thoracic compression fracture we may plan to prescribe a TLSO brace. Currently, patient has been unable to weight-bear and is lying in bed. She would not need a brace while lying in bed. Patient does agree this is a good plan of care for waiting for treatment until further imaging is performed. Nuclear medicine whole-body bone scan imaging is scheduled to be performed this afternoon. Thoracic MRI is still pending. Patient is also scheduled to undergo CT of the abdomen pelvis as ordered by medicine. We did discuss she does have multilevel stenosis at L3-4 and L4-5 and could be a candidate for surgical intervention if she were to fail conservative treatment options. We also did discuss that given her metastatic changes at her spine we should obtain further imaging to try to obtain a primary diagnosis. Will plan to follow-up with the patient. Will discuss plan of care in regards to her lumbar spine in greater detail depending on further imaging. Also, we do feel the patient will need at least rehab at the time of discharge. She is unable to ambulate independently and would have difficulty caring for herself at home. We would strongly recommend discharge to rehabilitation facility at the time of discharge if she is not transferred to a tertiary facility prior to that. 2. Patient has been seen by hematology/oncology. They are planning to start the patient on dexamethasone medication as well as muscle relaxer medication with cyclobenzaprine. From orthopedic spine standpoint, it is okay if the patient is on steroid medication and muscle relaxer medication. 3. Consultation was placed for radiation oncology as well. They attempted to see the patient today but she is currently undergoing further testing. 4. She will continue to be seen and examined by medicine as well
--- NOTE | 2023-10-06 15:01 | CT ---
EXAMINATION TYPE: CT ChestAbdPelvis w con DATE OF EXAM: 10/06/2023 COMPARISON: None available. HISTORY: Malignancy workup. CT DLP: Malignancy workup. mGycm Automated exposure control for dose reduction was used. CONTRAST: CT scan of the chest, abdomen and pelvis is performed with Oral Contrast and with IV Contrast, patien t injected with 80ml mL of Isovue 300. Aug Link FINDINGS: CHEST: Mediastinum and Renetta: There appears to be a large right infrahilar mass extending into the subcarinal region and lower lobe on the left side and measures approximately 8.8 x 5.8 cm in diameter. This yuval ears to obstruct the left lower lobe bronchus and causes atelectasis of the left lower lobe. There is a large pericardiac lymph node anteriorly measuring 1.7 cm in short axis diameter which is likely me tastatic. Pleural and Pericardial spaces: There is a small left pleural effusion. Cardiovascular: There is mild vascular calcification throughout the abdominal aorta without evidence of aneurysmal dilation or dissection. Pulmonary Artery: There are no central pulmonary arterial filling defects. Lung Parenchyma and Airways: Left infrahilar, mediastinal and left lower lobe mass was described abov e. Complete atelectasis of the left lower lobe is seen. The lungs otherwise appear clear. ABDOMEN: Liver and Biliary system: There is extensive metastatic liver disease with innumerable masses seen t hroughout the liver in both lobes measuring up to approximately 3.5 cm in diameter. Adrenal glands: Normal. Kidneys and ureters: Normal. Spleen: Normal. Pancreas: Normal. Gallbladder: Normal. Lymph nodes, Peritoneum and mesentery: There is an enlarged lymph node within the rick hepatis petra uring 3.1 cm in diameter consistent with metastasis. Portal caval lymph node measures 2.[address] and compatible with metastasis. There is no additional mesenteric or retroperitoneal adenopathy c learly identified at this time. Gastrointestinal tract: There are no dilated loops of bowel or free intraperitoneal air. . There is no evidence of appendicitis. There is mild sigmoid colonic diverticulosis without evidence of divert iculitis. Aorta/IVC: There is moderate vascular calcification throughout the abdominal aorta without evidence of aneurysmal dilation or dissection. IVC normal. Abdominal wall: Normal. PELVIS: Fluid: There is no free fluid in the pelvis. Lymph Nodes: There is no pelvic or inguinal lymphadenopathy.. Urinary bladder: Normal. BONES: Soft tissue rib metastasis is seen on the right lateral aspect of the right fifth rib measuri ng approximately 3.8 x 2.2 cm in diameter. Additional metastasis seen along the anterolateral right s eventh rib with some heterogeneity throughout the bone and surrounding soft tissue density as well. A nterolateral left fifth rib mass measuring 4.0 x 2.2 cm in diameter compatible with metastasis. Addit ional lateral seventh rib metastasis on the left is also seen. A few additional subtle likely rib met astasis are also seen. Likely lytic metastasis involving the posterior aspect of the T12 vertebral rebeca dy.. ADDITIONAL SIGNIFICANT FINDINGS: None. IMPRESSION: 1. Large left infrahilar mass extending into the mediastinum and left lower lobe with complete collap se of the left lung and obstruction of the left lower lobe bronchus compatible with malignancy. 2. Extensive metastatic liver disease and enlarged lymph nodes within the anterior mediastinum and pe ricardial region as well as within the rick hepatic region. 3. Osseous metastatic disease also noted. 4. Additional findings as above.
[2023-10-06] MEDS: MORPHINE SULFATE 4 MG/ML SYRINGE IVP PRN (16:16)
--- NOTE | 2023-10-06 16:16 | P.TRANS ---
Providers Date of admission: 10/03/23 16:18 Attending physician: Jovanni Stern Consults: 10/03/23 08:47 Consult Physician Routine Consulting Provider: Francois Upotn Consult Reason/Comments: Tibial plateau fracture Do you want consulting provider notified?: Already Contacted 10/04/23 10:04 Consult Physician Routine Consulting Provider: Freida Gonzalez Consult Reason/Comments: weakness Do you want consulting provider notified?: Yes 10/05/23 13:55 Consult Physician Routine Consulting Provider: Minh Rice Consult Reason/Comments: bony metastasis, unknown primary Do you want consulting provider notified?: Yes 10/06/23 13:23 Consult Physician Routine Consulting Provider: Del Adhikari Consult Reason/Comments: symptomatic mass Do you want consulting provider notified?: Already Contacted Primary care physician: Cole Craftor - Discharge Diagnosis(es) (1) Weakness of left lower extremity The patient is a 73-year-old female who presented to the hospital in regards to feelings of weakness at her lower extremities and repeated falls. The patient says that she has been having some issues with her low back and her lower extremities for quite some time even over the course of years. She says that more recently over the past couple of months she has been having some feelings of weakness in her left leg and has been having some episodes of falls. Her most recent fall was couple of weeks ago when she says that her back and her legs been feeling worse since then. She says she is having significant difficulty with her mobilization and with her ambulation. She has a significant history of alcohol use and is a chronic tobacco user. She was admitted to medicine in regards to her low back issues and her weakness and chronic alcohol use and we were consulted in regards to her low back and her lower extremities. On further workup with notations of her weakness and her degenerative changes at her lumbar spine we obtain further imaging with MRI. Upon the new MRI we discovered that there was significant changes at her thoracic and lumbar spine consistent with metastatic disease. She also has evidence of significant central and bilateral foraminal stenosis L3-4 L4-5. She has evidence of vertebral lesion and likely lytic lesion at T12 with some expansile mass extending towards the canal. I do not see any obvious cord signal changes. She has initiated further treatment with IV steroid and further workup through oncology, and radiation oncology, and the medicine service. Her vital signs have remained stable. She has a Stephens catheter intact since the time of admission. She is not having any bowel changes thus far. Her chest has good excursion deep inspiration expiration. Her abdomen is soft and is nontender. She has pain at her back with mobilization. At her lower extremities she has weakness with hip flexion. This is unchanged from her exam 2 days ago. She has sustained dorsiflexion plantarflexion EHL of bilateral lower extremities. This is unchanged from prior examination. With her extensive issues and her new diagnosis of metastatic cancer with unknown primary as well as her changes within her spinal cord with an expansile mass at T12 and her lower extremity weakness I think that she requires further level of care. Treatment for her thoracolumbar spine will likely require decompressive surgery and may require excision of spinal mass and stabilization. This is would be beyond the scope of care available to us. We have ordered further imaging with thoracic MRI and we are not able to obtain that until tomorrow. Her lumbar MRI and CT of her chest abdomen pelvis as well as bone scan has been reviewed and those results will be sent with her as well as the images. I have discussed this case at length with the patient as well as her softball coach at bedside and with the housestaff, medicine service and oncology and radiation oncology services. The patient will require significant further workup and treatment and would be best served at a tertiary facility. Will arrange for transfer to [facility]. I have discussed this with the transfer team and she has been accepted for admission at [facility] and we will start to work on this today. Current Visit: Yes Status: Acute Priority: High (2) Multiple falls Current Visit: Yes Status: Acute Priority: High Hospital Course: The patient is a 73-year-old female who presented to the hospital in regards to feelings of weakness at her lower extremities and repeated falls. The patient says that she has been having some issues with her low back and her lower extremities for quite some time even over the course of years. She says that more recently over the past couple of months she has been having some feelings of weakness in her left leg and has been having some episodes of falls. Her most recent fall was couple of weeks ago when she says that her back and her legs been feeling worse since then. She says she is having significant difficulty with her mobilization and with her ambulation. She has a significant history of alcohol use and is a chronic tobacco user. She was admitted to medicine in regards to her low back issues and her weakness and chronic alcohol use and we were consulted in regards to her low back and her lower extremities. On further workup with notations of her weakness and her degenerative changes at her lumbar spine we obtain further imaging with MRI. Upon the new MRI we discovered that there was significant changes at her thoracic and lumbar spine consistent with metastatic disease. She also has evidence of significant central and bilateral foraminal stenosis L3-4 L4-5. She has evidence of vertebral lesion and likely lytic lesion at T12 with some expansile mass extending towards the canal. I do not see any obvious cord signal changes. She has initiated further treatment with IV steroid and further workup through oncology, and radiation oncology, and the medicine service. Her vital signs have remained stable. She has a Stephens catheter intact since the time of admission. She is not having any bowel changes thus far. Her chest has good excursion deep inspiration expiration. Her abdomen is soft and is nontender. She has pain at her back with mobilization. At her lower extremities she has weakness with hip flexion. This is unchanged from her exam 2 days ago. She has sustained dorsiflexion plantarflexion EHL of bilateral lower extremities. This is unchanged from prior examination. With her extensive issues and her new diagnosis of metastatic cancer with unknown primary as well as her changes within her spinal cord with an expansile mass at T12 and her lower extremity weakness I think that she requires further level of care. Treatment for her thoracolumbar spine will likely require decompressive surgery and may require excision of spinal mass and stabilization. This is would be beyond the scope of care available to us. We have ordered further imaging with thoracic MRI and we are not able to obtain that until tomorrow. Her lumbar MRI and CT of her chest abdomen pelvis as well as bone scan has been reviewed and those results will be sent with her as well as the images. I have discussed this case at length with the patient as well as her softball coach at bedside and with the housestaff, medicine service and oncology and radiation oncology services. The patient will require significant further workup and treatment and would be best served at a tertiary facility. Will arrange for transfer to [facility]. I have discussed this with the transfer team and she has been accepted for admission at [facility] and we will start to work on this today. Health Concerns: Has history of chronic alcohol use and drinks up to a gallon of whiskey each month. She is a chronic smoker. She has a long history of low back pain lower extreme radicular symptoms. Pertinent Studies: New MRI of lumbar spine is completed on 10/05/2023, I do bone scan and chest abdomen pelvis CT scan are completed 10/05/2023. Her thoracic MRI was ordered but is still pending Patient Condition at Discharge: Undetermined Plan - Transfer Summary Transfer Medications: Active Medications Generic Name Dose Route Start Last Admin Trade Name Freq PRN Reason Stop Dose Admin Acetaminophen 650 mg 10/03/23 16:12 Acetaminophen Tab 325 Mg Tab PO Q6HR PRN Mild Pain or Fever > 100.5 Hydrocodone Bitart/Acetaminophen 1 each 10/03/23 08:47 10/06/23 12:02 Hydrocodone/Apap 5-325mg 1 Each Tab PO 1 each Q4HR PRN Administration Moderate Pain (Scale 4 to 6) Albuterol/Ipratropium 3 ml 10/03/23 20:00 10/06/23 08:24 Ipratropium-Albuterol 3 Ml Neb INHALATION 3 ml RT-BID JOHNY Administration Calcium Carbonate/Glycine 1,000 mg 10/03/23 16:12 Calcium Carbonate 500 Mg Chewable PO Q4HR PRN Dyspepsia Clonidine 0.2 mg 10/06/23 16:00 Clonidine Hcl 0.2 Mg Tab PO TID JOHNY Cyanocobalamin 1,000 mcg 10/03/23 16:15 10/06/23 08:34 Cyanocobalamin 500 Mcg Tab PO 1,000 mcg DAILY JOHNY Administration Cyclobenzaprine HCl 5 mg 10/06/23 10:15 10/06/23 10:47 Cyclobenzaprine 5 Mg Tab PO 5 mg TID JOHNY Administration Dexamethasone Sodium Phosphate 6 mg 10/06/23 16:00 Dexamethasone Sod Phosphate 10 Mg/Ml 1 Ml Vial IVP Q6H JOHNY Dextrose/Water 25 ml 10/03/23 16:14 Dextrose 50% Syringe 50 Ml IVP PER PROTOCOL PRN Hypoglycemia Protocol Dextrose/Water 50 ml 10/03/23 16:14 Dextrose 50% Syringe 50 Ml IVP PER PROTOCOL PRN Hypoglycemia Protocol Sodium Chloride 1,000 mls @ 75 mls/hr 10/03/23 09:00 10/06/23 02:46 Saline 0.9% IV 75 mls/hr .[id number] JOHNY Administration Insulin Aspart 0 unit 10/03/23 17:30 10/06/23 14:04 Insulin Aspart (Novolog) 100 Unit/Ml Vial SQ Not Given AC-TID [facility] Protocol Iopamidol 30 ml 10/05/23 21:01 10/06/23 12:03 Iopamidol Contrast (Oral Use) Vial PO 10/06/23 21:01 30 ml Q60M PRN Administration CT Scan Lactulose 20 gm 10/03/23 16:12 Lactulose 20 Gm/30 Ml Cup PO DAILY PRN Constipation Lisinopril 20 mg 10/03/23 21:00 10/06/23 08:34 Lisinopril 20 Mg Tab PO 20 mg BID JOHNY Administration Lorazepam 1 mg 10/03/23 08:47 Lorazepam 2 Mg/Ml Inj IV Q1HR PRN CIWA 10 to 15 Lorazepam 1 mg 10/03/23 08:47 Lorazepam 2 Mg/Ml Inj IV Q2HR PRN CIWA 8 or 9 Magnesium Oxide 400 mg 10/03/23 21:00 10/06/23 08:34 Magnesium Oxide 400 Mg Tab PO 400 mg BID JOHNY Administration Morphine Sulfate 4 mg 10/06/23 13:21 Morphine Sulfate 4 Mg/Ml Syringe IVP Q6HR PRN Pain Scale 7 to 10 Naloxone HCl 0.2 mg 10/03/23 08:47 Naloxone 0.4 Mg/Ml 1 Ml Vial IV Q2M PRN Opioid Reversal Nicotine 1 patch 10/03/23 16:30 10/06/23 08:35 Nicotine 21mg/24hr Patch TRANSDERM Not Given DAILY [facility] Ondansetron HCl 4 mg 10/03/23 08:47 Ondansetron 4 Mg/2 Ml Vial IVP Q8HR PRN Nausea And Vomiting Pantoprazole Sodium 40 mg 10/06/23 10:15 10/06/23 12:01 Pantoprazole 40 Mg/10 Ml Vial IVP 40 mg BID [facility] Administration Pravastatin Sodium 80 mg 10/03/23 16:00 10/06/23 08:34 Pravastatin Sodium 80 Mg Tab PO 80 mg DAILY JOHNY Administration Thiamine HCl 100 mg 10/04/23 09:00 10/06/23 08:34 Thiamine 100 Mg Tab PO 100 mg DAILY JOHNY Administration Venlafaxine HCl 75 mg 10/03/23 16:00 02/14/24 08:34 Venlafaxine Hcl Er 75 Mg Cap PO 75 mg DAILY JOHNY Administration Follow up Appointment(s)/Referral(s): Alison Adame, [NON-STAFF] - As Needed None,Stated [REFERRING] - 1-2 days Discharge/Stand Alone Forms: Who Do I Call?, PH Area PCPs
[2023-10-06] MEDS: cloNIDine HCL 0.2 MG TAB PO SCH (16:17)
--- NOTE | 2023-10-06 16:24 | NM ---
EXAMINATION TYPE: NM bone scan whole body DATE OF EXAM: 10/06/2023 3:39 PM CLINICAL INDICATION:Female, 73 years old with history of LE weakness, spinal mets; COMPARISON: CT same day TECHNIQUE: Intravenous administration 21.8 mCi Tc 99m MDP followed by multiple scintigraphic images o f the appendicular and axial skeleton. Images acquired 5 hours post injection. FINDINGS: Scattered abnormal uptake in the spine and bilateral ribs. Subtle uptake within the sternum may also represent additional site of metastatic disease. There is abnormal uptake within the calvarium. There is increased uptake within the bilateral shoulder, sternoclavicular, and sacroiliac joints con sistent with degenerative changes. No other photopenic areas or areas of increased activity are ident ified. Physiologic radiotracer activity is demonstrated in the kidneys and bladder. IMPRESSION: Findings compatible with with metastatic disease involving the calvarium, bilateral ribs and spine. S ome of these findings are confirmed on same-day CT. Consider further evaluation of the brain with MRI brain with IV contrast.
--- NOTE | 2023-10-06 16:45 | P.CONS ---
History of Present Illness - Reason for Consult Consult date: 10/06/23 back pain, weakness Requesting physician: Minh Rice - Chief Complaint falls, leg weakness - History of Present Illness The patient is a 73-year-old female with a history of tobacco abuse. She states that she has had 2 years of back pain and lower extremity weakness felt related to spinal stenosis. However, over the past few weeks she has had increased falls. Imaging has revealed a likely left lung cancer with extensive osseous metastatic disease. The patient presented to the emergency room on 10/03/2023. She states that she has had a long history of spinal stenosis over the past 2 years. However, just recently she has had increased weakness and frequent falls. In the ER, a chest x-ray showed haziness in the left lower lung. X-ray of the L-spine show degene rative disease. However, the patient was seen by orthopedics and she was felt to be very weak in the lower extremities. An MRI of the L-spine was done on October 05 revealing diffuse metastatic disease involving the lumbar and sacral spine. There was soft tissue extension along the s sacral component. There was not any evidence of a clear cord compression, however there was narrowing of the spinal canal at the level of T12. The patient was subsequent started on Decadron. She underwent a computed tomography scan earlier today of the chest, abdomen and pelvis. This revealed a large left infrahilar mass with collapse of the left lower lung. There was evidence of multiple liver metastasis, as well as osseous disease involving the bilateral ribs and thoracic spine. At the current time, the patient reports she is having back pain. She states that this is in the mid back. Physical therapy did work with her today, and the patient was unable to ambulate. She states both legs feel numb and heavy. She has had a catheter placed secondary to lack of urinary control. Review of Systems Constitutional: Denies chills, Denies fever Eyes: denies blurred vision Ears, nose, mouth and throat: Denies headache Cardiovascular: Denies chest pain Respiratory: Denies cough, Denies hemoptysis Gastrointestinal: Reports constipation (1 week prior to hospital stay) Musculoskeletal: Reports as per HPI Neurological: Reports paresthesias, Reports weakness, Denies confusion, Denies double vision Psychiatric: Denies anxiety, Denies confusion Past Medical History Past Medical History: Diabetes Mellitus, Hyperlipidemia, Hypertension, Rheumatoid Arthritis (RA), Sleep Apnea/CPAP/BIPAP History of Any Multi-Drug Resistant Organisms: None Reported Past Surgical History: No Surgical Hx Reported Past Psychological History: No Psychological Hx Reported Smoking Status: Current every day smoker Past Alcohol Use History: Daily Past Drug Use History: None Reported Medications and Allergies Home Medications Medication Instructions Recorded Confirmed Type Cyanocobalamin (Vitamin B-12) 1,000 mcg PO DAILY 10/03/23 10/03/23 History [Vitamin B-12] Ergocalciferol (Vitamin D2) 1,250 mcg PO SPRINGER 10/03/23 10/03/23 History [Drisdol (50,000 Iu)] Ibuprofen [Motrin] 800 mg PO Q8H PRN 10/03/23 10/03/23 History Pravastatin Sodium [Pravachol] 80 mg PO DAILY 10/03/23 10/03/23 History Repaglinide [Prandin] 1 mg PO AC-BID 10/03/23 10/03/23 History Venlafaxine HCl [Effexor XR] 75 mg PO DAILY 10/03/23 10/03/23 History lisinopriL [Zestril] 20 mg PO BID 10/03/23 10/03/23 History metFORMIN HCL 1,000 mg PO BID 10/03/23 10/03/23 History nadoloL 40 mg PO BID 10/03/23 10/03/23 History Allergies Allergy/AdvReac Type Severity Reaction Status Date / Time Penicillins Allergy Severe Nausea & Verified 10/03/23 10:10 Vomiting Physical Exam Vitals: Vital Signs Temp Pulse Pulse Resp BP BP Pulse Ox 10/06/23 14:00 97.3 F L 62 16 177/88 94 L 10/06/23 08:39 68 10/06/23 08:25 68 10/06/23 07:22 98.6 F 62 16 160/88 97 10/06/23 04:55 157/85 10/06/23 00:52 97.4 F L 64 19 196/86 94 L 10/05/23 20:09 97.4 F L 65 18 152/74 95 Intake and Output 10/06/23 10/06/23 10/06/23 06:59 14:59 22:59 Intake Total 240 Output Total 925 Balance -925 240 Intake: Oral 240 Output: Urine 925 - Constitutional General appearance: no acute distress, obese - EENT Eyes: EOMI, PERRLA ENT: hearing grossly normal - Neck Neck: no lymphadenopathy - Respiratory Respiratory: right: CTA, left: diminished - Cardiovascular Rhythm: regular - Gastrointestinal General gastrointestinal: no tenderness - Neurologic Neurologic: CNII-XII intact - Musculoskeletal Musculoskeletal: right sided weakness (3/5 right hip flexion, 4/5 ankle flex/ext), left sided weakness (1/5 left hip flexion/knee flexion. 3/5 ankle flexion/ext) - Psychiatric Psychiatric: A&O x's 3, appropriate affect Results CBC & Chem 7: 10/03/23 06:15 10/05/23 07:06 Labs: Abnormal Lab Results - Last 24 Hours (Table) 10/05/23 10/05/23 10/06/23 Range/Units 17:22 20:19 04:57 POC Glucose (mg/dL) 199 H 181 H 158 H (70-110) mg/dL 10/06/23 Range/Units 12:21 POC Glucose (mg/dL) 157 H (70-110) mg/dL Microbiology - Last 24 Hours (Table) 10/03/23 09:30 Blood Culture - Preliminary Blood 10/03/23 09:15 Blood Culture - Preliminary Blood CT scan - abdomen: report reviewed, image reviewed CT scan - chest: report reviewed, image reviewed CT scan - pelvis: report reviewed, image reviewed Assessment and Plan Assessment: The patient is a 73-year-old female with a history of tobacco abuse. She states that she has had 2 years of back pain and lower extremity weakness felt related to spinal stenosis. However, over the past few weeks she has had increased falls. Imaging has revealed a likely left lung cancer with extensive osseous metastatic disease. Plan: 1. LE weakness: Likely secondary to metastatic disease. MRI of the thoracic spine is pending at this time. It is possible she may have cord compression at this level. There is no clear cord compression within the L-spine, but there were multiple lesions present. Patient is currently on 6 mg of Decadron every 6 hours. Started Decadron this a.m., but has not noticeably responded as of yet. The patient has been evaluated by orthopedic surgery. If there will not be any surgical intervention, she would likely need urgent palliative radiation. We would likely treat despite awaiting final pathology considering the patient has progressive neurologic symptoms. MRI of the thoracic spine would be helpful to ensure we are not missing any areas of high-grade compression. 2. Left lung mass: Likely the site of her primary cancer (possible SCLC). I would recommend biopsy of the liver to obtain diagnosis. Patient will also need an MRI of the brain to complete her staging workup. Time with Patient: Greater than 30
[2023-10-06 17:21] LABS: Glucose,Whole Blood 308 mg/dL (70-110)
[2023-10-06] MEDS: DEXAMETHASONE SOD PHOSPHATE 10 MG/ML 1 ML VIAL IVP SCH (18:06)
--- NOTE | 2023-10-06 19:26 | P.PN ---
Progress Note - Text Progress Note Date: 10/06/23 Chief Complaint: Fall This is a 73-year-old patient, who was following with Dr. Epstein. Chronic stable medical conditions include diabetes, hyperlipidemia, hypertension, rheumatoid arthritis, obstructive sleep apnea. Patient also cigarette smoker and drinks about a gallon of whiskey a week. Patient is accompanied by her cousin in the room. Patient has been getting increasingly weak. Legs get weak. Sometimes just give way and fall down. This happened at least couple of times. Patient is found to have a small avulsion fracture of the lateral tibial plateau. Brace was put in the ER. Orthopedics was consulted. Patient has been feeling rather tired. Weak. Also patient blood glucose was noted to be running low. Patient states that she has been eating fine. October 04: Patient states she has been having some chronic low back pain. Seen by orthopedics Dr. Gonzalez. Ordered MRI of the lumbar spine. Patient could barely get up with physical therapy. Citing weakness in the thigh. No bowel trouble. No urine trouble. October 05: Laying in bed. Still feeling weakness numbness lower extremity. Saw the patient this morning. Was pending MRI at that time. Later MRI showing pathologic fracture of the superior endplate L2. Evidence for metastatic disease throughout the osseous structures with soft tissue component extending IV from the anterior sacrum towards the thecal sac at T12 as well as the level of left neural foramina at L1-L2. Multilevel DJD. Dr. Gonzalez from spine is on the case including oncology consulted. October 06: Saw the patient this morning. Cousin is present in the room. Broadly discussed the approach to malignancy treatment rehab etc. Later this afternoon patient underwent CT scan abdomen chest and pelvis. Was found to have a large right infrahilar mass extending into the subcarinal region lower lobe on the left side 8.8 x 5.9 cm. Obstructing the left lower bronchus causing atelectasis left lower lobe. Large pericardiac lymph node anteriorly. Calcification throughout the abdominal aorta. Osseous metastasis noted. I was called about the results by Dr. Lindsay from orthopedics. Given the complexity and MRI not available until at least tomorrow. He is planned to transfer the patient down to [facility]. He is initiated the process. Patient continues to feel weak in both the legs and numbness. Later today then again bone scan of the whole body was done. Found to have metastatic disease involving the calvarium bilateral ribs and spine. Active Medications Acetaminophen (Acetaminophen Tab 325 Mg Tab) 650 mg PO Q6HR PRN PRN Reason: Mild Pain or Fever > 100.5 Hydrocodone Bitart/Acetaminophen (Hydrocodone/Apap 5-325mg 1 Each Tab) 1 each PO Q4HR PRN PRN Reason: Moderate Pain (Scale 4 to 6) Last Admin: 10/06/23 19:06 Dose: 1 each Albuterol/Ipratropium (Ipratropium-Albuterol 3 Ml Neb) 3 ml INHALATION RT-BID [facility] Last Admin: 10/06/23 08:24 Dose: 3 ml Calcium Carbonate/Glycine (Calcium Carbonate 500 Mg Chewable) 1,000 mg PO Q4HR PRN PRN Reason: Dyspepsia Clonidine (Clonidine Hcl 0.2 Mg Tab) 0.2 mg PO TID [facility] Last Admin: 10/06/23 16:17 Dose: 0.2 mg Cyanocobalamin (Cyanocobalamin 500 Mcg Tab) 1,000 mcg PO DAILY [facility] Last Admin: 10/06/23 08:34 Dose: 1,000 mcg Cyclobenzaprine HCl (Cyclobenzaprine 5 Mg Tab) 5 mg PO TID [facility] Last Admin: 10/06/23 18:06 Dose: 5 mg Dexamethasone Sodium Phosphate (Dexamethasone Sod Phosphate 10 Mg/Ml 1 Ml Vial) 6 mg IVP Q6H [facility] Last Admin: 10/06/23 18:06 Dose: 6 mg Dextrose/Water (Dextrose 50% Syringe 50 Ml) 25 ml IVP PER PROTOCOL PRN; Protocol PRN Reason: Hypoglycemia Dextrose/Water (Dextrose 50% Syringe 50 Ml) 50 ml IVP PER PROTOCOL PRN; Protocol PRN Reason: Hypoglycemia Sodium Chloride (Saline 0.9%) 1,000 mls @ 75 mls/hr IV .[id number] [facility] Last Admin: 10/06/23 18:06 Dose: 75 mls/hr Insulin Aspart (Insulin Aspart (Novolog) 100 Unit/Ml Vial) 0 unit SQ AC-TID [facility]; Protocol Last Admin: 10/06/23 18:07 Dose: Not Given Iopamidol (Iopamidol Contrast (Oral Use) Vial) 30 ml PO Q60M PRN PRN Reason: CT Scan Stop: 10/06/23 21:01 Last Admin: 10/06/23 12:03 Dose: 30 ml Lactulose (Lactulose 20 Gm/30 Ml Cup) 20 gm PO DAILY PRN PRN Reason: Constipation Lisinopril (Lisinopril 20 Mg Tab) 20 mg PO BID [facility] Last Admin: 10/06/23 08:34 Dose: 20 mg Lorazepam (Lorazepam 2 Mg/Ml Inj) 1 mg IV Q1HR PRN PRN Reason: CIWA 10 to 15 Lorazepam (Lorazepam 2 Mg/Ml Inj) 1 mg IV Q2HR PRN PRN Reason: CIWA 8 or 9 Magnesium Oxide (Magnesium Oxide 400 Mg Tab) 400 mg PO BID [facility] Last Admin: 10/06/23 08:34 Dose: 400 mg Morphine Sulfate (Morphine Sulfate 4 Mg/Ml Syringe) 4 mg IVP Q6HR PRN PRN Reason: Pain Scale 7 to 10 Last Admin: 10/06/23 16:16 Dose: 4 mg Naloxone HCl (Naloxone 0.4 Mg/Ml 1 Ml Vial) 0.2 mg IV Q2M PRN PRN Reason: Opioid Reversal Nicotine (Nicotine 21mg/24hr Patch) 1 patch TRANSDERM DAILY [facility] Last Admin: 10/06/23 08:35 Dose: Not Given Ondansetron HCl (Ondansetron 4 Mg/2 Ml Vial) 4 mg IVP Q8HR PRN PRN Reason: Nausea And Vomiting Pantoprazole Sodium (Pantoprazole 40 Mg/10 Ml Vial) 40 mg IVP BID [facility] Last Admin: 10/06/23 12:01 Dose: 40 mg Pravastatin Sodium (Pravastatin Sodium 80 Mg Tab) 80 mg PO DAILY [facility] Last Admin: 10/06/23 08:34 Dose: 80 mg Thiamine HCl (Thiamine 100 Mg Tab) 100 mg PO DAILY [facility] Last Admin: 10/06/23 08:34 Dose: 100 mg Venlafaxine HCl (Venlafaxine Hcl Er 75 Mg Cap) 75 mg PO DAILY [facility] Last Admin: 10/06/23 08:34 Dose: 75 mg Social history: Lives alone. Does have a walker. Smokes daily. Drinks about a gallon of whiskey a week. Physical examination: VITAL SIGNS: 98.6, 62, 16, 160/88, 97% room air GENERAL: Up in a chair EYES: Pupils equal. Conjunctiva shana l. HEENT: External appearance of nose and ears normal, oral cavity grossly normal. NECK: JVD not raised; masses not palpable. HEART: First and second heart sounds are normal; no edema. LUNGS: Respiratory rate normal; decreased breath sounds. ABDOMEN: Soft, nontender, liver spleen not palpable, no masses palpable. PSYCH: [Patient sleepy but can answer questions.. MUSCULOSKELETAL:No Clubbing/cyanosis;muscles-grossly intact. OA NEUROLOGICAL: Cranial nerves grossly intact; no facial asymmetry, weakness and numbness of both lower extremity INVESTIGATIONS, reviewed in the clinical context: Nuclear bone scan: Findings compatible with metastatic disease involving the calvarium, bilateral ribs and spine. CT scan abdomen chest pelvis:Was found to have a large right infrahilar mass extending into the subcarinal region lower lobe on the left side 8.8 x 5.9 cm. Obstructing the left lower bronchus causing atelectasis left lower lobe. Large pericardiac lymph node anteriorly. Calcification throughout the abdominal aorta. Osseous metastasis noted. MRI spine [pathological fracture superior endplate of L2. Evidence for metastatic disease throughout the osseous structures with soft tissue component extending away from the anterior sacrum and posterior lead towards the thecal sac at T12 as well as the level of the left neural foramina L1-L2. Multilevel DJD including L3-L4 and L4-L5 with severe spinal canal stenosis. October 05: Sodium 132 potassium 5 BUN 24 creatinine 1.07 UA: Leukoesterase positive WBC 182 squamous epithelial 46 October 03: White count 11 hemoglobin 14.4 platelets 216 sodium 129 potassium 4.8 BUN 20 creatinine 1.14 blood glucose 70. Accu-Chek 62, 68 Magnesium 1.3 AST 72 ALT 20 Influenza type A, B, RSV, COVID-19: Not detected Chest x-ray film personally reviewed by me-some hyperinflation. Some cardiomegaly. Smoker Assessment and plan: -Acute on chronic low back pain causing falls: Pathological fracture superior endplate of L2. Evidence for metastatic disease throughout the osseous structures with soft tissue component extending away from the anterior sacrum and posterior lead towards the thecal sac at T12 as well as the level of the left neural foramina L1-L2. Multilevel DJD including L3-L4 and L4-L5 with severe spinal canal stenosis. Dr. Freida Gonzalez from orthopedic spine consulted. Dr. Harmon from oncology consulted. 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 Oncology consulted -Alcohol use disorder Thiamine.. CIWA scale -Alcoholic hepatitis -Chronic nicotine dependence cigarette smoker Nicotine patch -COPD-current smoker DuoNeb twice daily -Right leg: Small avulsion fracture of the lateral tibial plateau second fr acture as described above. Secondary to fall Being followed by orthopedics -Diabetes mellitus type 2, uncontrolled with hypoglycemia Accu-Cheks with sliding scale insulin. -Essential hypertension Cut back Zestril to 20 mg nightly -Depression anxiety Effexor XR 75 mg a day -Hyperlipidemia Pravachol 80 mg a day Earlier this morning care was discussed with the patient and cousin at the bedside. Also spoke to the showcase trimmer. Also discussed with Dr. Gonzalez he is now planning to plan to transfer the patient to [facility]. Prognosis guarded. Total time spent today about 1 hour with over 35 minutes of discussion. Past Medical History Past Medical History: Diabetes Mellitus, Hyperlipidemia, Hypertension, Rheumatoid Arthritis (RA), Sleep Apnea/CPAP/BIPAP History of Any Multi-Drug Resistant Organisms: None Reported Past Surgical History: No Surgical Hx Reported Past Psychological History: No Psychological Hx Reported Smoking Status: Current every day smoker Past Alcohol Use History: Daily Past Drug Use History: None Reported
[2023-10-06 22:27] LABS: Glucose,Whole Blood 164 mg/dL (70-110)
[2023-10-07 05:38] LABS: Glucose,Whole Blood 169 mg/dL (70-110)
--- NOTE | 2023-10-07 08:24 | P.DS ---
Providers Date of admission: 10/03/23 16:18 Attending physician: Jovanni Stern Consults: 10/03/23 08:47 Consult Physician Routine Consulting Provider: Francois Upton Consult Reason/Comments: Tibial plateau fracture Do you want consulting provider notified?: Already Contacted 10/04/23 10:04 Consult Physician Routine Consulting Provider: Freida Gonzalez Consult Reason/Comments: weakness Do you want consulting provider notified?: Yes 10/05/23 13:55 Consult Physician Routine Consulting Provider: Minh Rice Consult Reason/Comments: bony metastasis, unknown primary Do you want consulting provider notified?: Yes 10/06/23 13:23 Consult Physician Routine Consulting Provider: Del Adhikari Consult Reason/Comments: symptomatic mass Do you want consulting provider notified?: Already Contacted Primary care physician: Cole Craftor - Discharge Diagnosis(es) (1) Weakness of left lower extremity The patient is a 73-year-old female who presented to the hospital in regards to feelings of weakness at her lower extremities and repeated falls. The patient says that she has been having some issues with her low back and her lower extremities for quite some time even over the course of years. She says that more recently over the past couple of months she has been having some feelings of weakness in her left leg and has been having some episodes of falls. Her most recent fall was couple of weeks ago when she says that her back and her legs been feeling worse since then. She says she is having significant difficulty with her mobilization and with her ambulation. She has a significant history of alcohol use and is a chronic tobacco user. She was admitted to medicine in regards to her low back issues and her weakness and chronic alcohol use and we were consulted in regards to her low back and her lower extremities. On further workup with notations of her weakness and her degenerative changes at her lumbar spine we obtain further imaging with MRI. Upon the new MRI we discovered that there was significant changes at her thoracic and lumbar spine consistent with metastatic disease. She also has evidence of significant central and bilateral foraminal stenosis L3-4 L4-5. She has evidence of vertebral lesion and likely lytic lesion at T12 with some expansile mass extending towards the canal. I do not see any obvious cord signal changes. She has initiated further treatment with IV steroid and further workup through oncology, and radiation oncology, and the medicine service. Her vital signs have remained stable. She has a Stephens catheter intact since the time of admission. She is not having any bowel changes thus far. Her chest has good excursion deep inspiration expiration. Her abdomen is soft and is nontender. She has pain at her back with mobilization. At her lower extremities she has weakness with hip flexion. This is unchanged from her exam 2 days ago. She has sustained dorsiflexion plantarflexion EHL of bilateral lower extremities. This is unchanged from prior examination. With her extensive issues and her new diagnosis of metastatic cancer with unknown primary as well as her changes within her spinal cord with an expansile mass at T12 and her lower extremity weakness I think that she requires further level of care. Treatment for her thoracolumbar spine will likely require decompressive surgery and may require excision of spinal mass and stabilization. This is would be beyond the scope of care available to us. We have ordered further imaging with thoracic MRI and we are not able to obtain that until tomorrow. Her lumbar MRI and CT of her chest abdomen pelvis as well as bone scan has been reviewed and those results will be sent with her as well as the images. I have discussed this case at length with the patient as well as her manager credit at bedside and with the housestaff, medicine service and oncology and radiation oncology services. The patient will require significant further workup and treatment and would be best served at a tertiary facility. Will arrange for transfer to [facility]. I have discussed this with the transfer team and she has been accepted for admission at [facility] and we will start to work on this today. Current Visit: Yes Status: Acute Priority: High (2) Multiple falls Current Visit: Yes Status: Acute Priority: High Hospital Course: The patient is a 73-year-old female who presented to the hospital in regards to feelings of weakness at her lower extremities and repeated falls. The patient says that she has been having some issues with her low back and her lower extremities for quite some time even over the course of years. She says that more recently over the past couple of months she has been having some feelings of weakness in her left leg and has been having some episodes of falls. Her most recent fall was couple of weeks ago when she says that her back and her legs been feeling worse since then. She says she is having significant difficulty with her mobilization and with her ambulation. She has a significant history of alcohol use and is a chronic tobacco user. She was admitted to medicine in regards to her low back issues and her weakness and chronic alcohol use and we were consulted in regards to her low back and her lower extremities. On further workup with notations of her weakness and her degenerative changes at her lumbar spine we obtain further imaging with MRI. Upon the new MRI we discovered that there was significant changes at her thoracic and lumbar spine consistent with metastatic disease. She also has evidence of significant central and bilateral foraminal stenosis L3-4 L4-5. She has evidence of vertebral lesion and likely lytic lesion at T12 with some expansile mass extending towards the canal. I do not see any obvious cord signal changes. She has initiated further treatment with IV steroid and further workup through oncology, and radiation oncology, and the medicine service. Her vital signs have remained stable. She has a Stephens catheter intact since the time of admission. She is not having any bowel changes thus far. Her chest has good excursion deep inspiration expiration. Her abdomen is soft and is nontender. She has pain at her back with mobilization. At her lower extremities she has weakness with hip flexion. This is unchanged from her exam 2 days ago. She has sustained dorsiflexion plantarflexion EHL of bilateral lower extremities. This is unchanged from prior examination. With her extensive issues and her new diagnosis of metastatic cancer with unknown primary as well as her changes within her spinal cord with an expansile mass at T12 and her lower extremity weakness I think that she requires further level of care. Treatment for her thoracolumbar spine will likely require dec ompressive surgery and may require excision of spinal mass and stabilization. This is would be beyond the scope of care available to us. We have ordered further imaging with thoracic MRI and we are not able to obtain that until tomorrow. Her lumbar MRI and CT of her chest abdomen pelvis as well as bone scan has been reviewed and those results will be sent with her as well as the images. I have discussed this case at length with the patient as well as her manager credit at bedside and with the housestaff, medicine service and oncology and radiation oncology services. The patient will require significant further workup and treatment and would be best served at a tertiary facility. Will arrange for transfer to [facility]. I have discussed this with the transfer team and she has been accepted for admission at [facility] and we will start to work on this today. Health Concerns: Has history of chronic alcohol use and drinks up to a gallon of whiskey each month. She is a chronic smoker. She has a long history of low back pain lower extreme radicular symptoms. Pertinent Studies: New MRI of lumbar spine is completed on 10/05/2023, I do bone scan and chest abdomen pelvis CT scan are completed 10/05/2023. Her thoracic MRI was ordered but is still pending The patient is seen and examined again today. She has not had changes in her neurologic status since yesterday. We initiated arrangements for her to transfer to [facility] for further workup evaluation and definitive treatment. The patient is agreeable for this that she has been accepted to [facility]. Hopefully she will be transferred today. Current Visit: Yes Status: Acute Priority: High (2) Multiple falls Current Visit: Yes Status: Acute Priority: High Health Concerns: Has history of chronic alcohol use and drinks up to a gallon of whiskey each month. She is a chronic smoker. She has a long history of low back pain lower extreme radicular symptoms. Patient Condition at Discharge: Undetermined Plan - Discharge Summary Discharge Rx Participant: No New Discharge Prescriptions: No Action nadoloL 40 mg PO BID Cyanocobalamin (Vitamin B-12) [Vitamin B-12] 1,000 mcg PO DAILY metFORMIN HCL 1,000 mg PO BID Venlafaxine HCl [Effexor XR] 75 mg PO DAILY Ergocalciferol (Vitamin D2) [Drisdol (50,000 Iu)] 1,250 mcg PO SPRINGER lisinopriL [Zestril] 20 mg PO BID Pravastatin Sodium [Pravachol] 80 mg PO DAILY Ibuprofen [Motrin] 800 mg PO Q8H PRN PRN Reason: Pain Or Fever > 100.5 Repaglinide [Prandin] 1 mg PO AC-BID Discharge Medication List Cyanocobalamin (Vitamin B-12) [Vitamin B-12] 1,000 mcg PO DAILY 10/03/23 [History] Ergocalciferol (Vitamin D2) [Drisdol (50,000 Iu)] 1,250 mcg PO SPRINGER 10/03/23 [History] Ibuprofen [Motrin] 800 mg PO Q8H PRN 10/03/23 [History] Pravastatin Sodium [Pravachol] 80 mg PO DAILY 10/03/23 [History] Repaglinide [Prandin] 1 mg PO AC-BID 10/03/23 [History] Venlafaxine HCl [Effexor XR] 75 mg PO DAILY 10/03/23 [History] lisinopriL [Zestril] 20 mg PO BID 10/03/23 [History] metFORMIN HCL 1,000 mg PO BID 10/03/23 [History] nadoloL 40 mg PO BID 10/03/23 [History] Follow up Appointment(s)/Referral(s): [facility], [NON-STAFF] - As Needed None,Stated [REFERRING] - 1-2 days Discharge/Stand Alone Forms: Who Do I Call?, PH Area PCPs Discharge [facility]position[facility]
[2023-10-07] MEDS: LORazepam 1 MG TAB PO STA (09:35)
[2023-10-07 12:24] LABS: Glucose,Whole Blood 152 mg/dL (70-110)
--- NOTE | 2023-10-07 15:57 | P.PN ---
Subjective Progress Note Date: 10/07/23 Principal diagnosis: Cord compression, abnormal imaging findings, very concerning for metastatic malignancy Patient was seen with relative at the bedside, patient declined transfer to [facility] and we were called back by attending to discuss what treatment/care is available locally for patient. Since starting steroids yesterday, patient denies any significant improvement in the sensation or strength of her lower extremities. She continues to have some bladder/bowel sensations but it is very minimal. She has no other acute physical complaints at this time Objective - Vital Signs Vital signs: Vital Signs Temp 98.7 F 10/07/23 14:15 Pulse 55 L 10/07/23 14:15 Resp 16 10/07/23 14:15 BP 126/67 10/07/23 14:15 Pulse Ox 95 10/07/23 14:15 FiO2 Intake & Output 10/06/23 10/07/23 10/07/23 18:59 06:59 18:59 Intake Total 240 636 Output Total 500 1600 300 Balance -260 -1600 336 Intake: Oral 240 636 Output: Urine 500 1600 300 Other: Voiding Method Indwelling Catheter Indwelling Catheter # Bowel Movements 4 - Constitutional General appearance: Present: average body habitus, disheveled, no acute distress - EENT Eyes: Present: anicteric sclerae, EOMI ENT: Present: hearing grossly normal - Respiratory Details: Respirations mildly labored at rest, more so when speaking - Peripheral edema leg Peripheral Edema: bilateral: Trace - Neurologic Neurologic: Present: CNII-XII intact (Grossly) - Musculoskeletal Musculoskeletal Comment(s): Bilateral lower extremity weakness persists, left greater than right, not improved from yesterday - Psychiatric Psychiatric: Present: A&O x's 3 - Labs CBC & Chem 7: 10/03/23 06:15 10/05/23 07:06 Labs: Abnormal Lab Results - Last 24 Hours (Table) 10/06/23 10/06/23 10/07/23 Range/Units 17:20 22:25 05:37 POC Glucose (mg/dL) 308 H 164 H 169 H (70-110) mg/dL 10/07/23 Range/Units 12:23 POC Glucose (mg/dL) 152 H (70-110) mg/dL Microbiology - Last 24 Hours (Table) 10/03/23 09:30 Blood Culture - Preliminary Blood 10/03/23 09:15 Blood Culture - Preliminary Blood - Imaging and Cardiology CT scan - abdomen: report reviewed CT scan - chest: report reviewed CT scan - pelvis: report reviewed Nuclear medicine bone scan report reviewed Assessment and Plan (1) Sacral mass Current Visit: Yes Status: Acute Priority: High Code(s): M53.3 - SACROCOCCYGEAL DISORDERS, NOT ELSEWHERE CLASSIFIED SNOMED Code(s): 295214314093443 (2) Back pain Current Visit: Yes Status: Acute Priority: High Code(s): M54.9 - DORSALGIA, UNSPECIFIED SNOMED Code(s): 952884753 (3) Multiple falls Current Visit: Yes Status: Acute Priority: High Code(s): R29.6 - REPEATED FALLS SNOMED Code(s): 204352379 (4) Weakness of left lower extremity Current Visit: Yes Status: Acute Priority: High Code(s): R29.898 - OTH SYMPTOMS AND SIGNS INVOLVING THE MUSCULOSKELETAL SYSTEM SNOMED Code(s): 946095181 Plan: Sacral mass, bone lesions, lower extremity numbness and weakness -Based on orthopedic spine recommendations patient was slated for transfer to [facility], and excepted for surgical evaluation. Patient has opted not to transfer -Patient wanted to know what could be done or would be done for her here locally. -We reviewed the CT CAP and nuclear medicine bone scan results, lung mass, liver lesions, multiple bony metastases. We discussed that what ever the primary malignancy is the scan findings are most consistent with metastatic disease. Intent of any treatments would be palliative in nature, reducing the symptoms of malignancy and prolonging life for some period of time. -We discussed the role of radiation to help alleviate neurological symptoms. We reviewed that the patient does not have to be transferred to receive radiation. -It was explained that most likely the malignancy is coming from the lung and has spread to the liver and the bones but, this cannot be known absolutely without a biopsy. So, a biopsy would need to be done in order for Onc to discuss what treatment options are available and prognosis. -Ultimately patient has decided on hospice. Case was discussed with air defense artillery senior sergeant. Plan is to discharge tomorrow to the hospice house in [place]. Greater than 60 minutes was spent reviewing reports, counseling and coordinating care
--- NOTE | 2023-10-07 16:48 | MR ---
EXAMINATION TYPE: MR thoracic spine wo con DATE OF EXAM: 10/07/2023 11:11 AM CLINICAL INDICATION:Female, 73 years old with history of LE weakness, spinal mets, LE weakness, spina l mets COMPARISON: 10/06/2023. TECHNIQUE: Multi planar, multi sequence imaging was performed utilizing: T1-weighted, short-tau inver joseline recovery and T2-weighted of the thoracic spine. Exam terminated before IV contrast can be utilized. FINDINGS: Redemonstration of evidence of diffuse metastatic disease throughout the osseous structures with susp ected superior endplate pathologic fracture of L2 partially visualized. Soft tissue masses are seen i n multiple areas throughout the spine and some of them impresses upon the thecal sac and displaces th e spinal cord. Examples include at the level of T4 with severe spinal canal stenosis with posterior l eft lateral soft tissue mass and at the level of T9 with a posterior mass which impresses the spinal cord anteriorly with moderate to severe spinal canal stenosis. Abnormal signal throughout the spine a t nearly every vertebral level. Cord signal at these levels is still felt to be maintained. Scattered hepatic masses as well as conglomerate mass in the left lung base. IMPRESSION: Exam was terminated early before the administration of contrast. Masses throughout the osseous structures including lung nodules with soft tissue component. At the le vinicius of T4 and T9 with displacement of the thecal sac and severe spinal canal stenosis. Severe spinal canal stenosis at the level of T4.
[2023-10-07 17:11] LABS: Glucose,Whole Blood 167 mg/dL (70-110)
--- NOTE | 2023-10-07 19:30 | P.PN ---
Progress Note - Text Progress Note Date: 10/07/23 Chief Complaint: Fall This is a 73-year-old patient, who was following with Dr. Epstein. Chronic stable medical conditions include diabetes, hyperlipidemia, hypertension, rheumatoid arthritis, obstructive sleep apnea. Patient also cigarette smoker and drinks about a gallon of whiskey a week. Patient is accompanied by her cousin in the room. Patient has been getting increasingly weak. Legs get weak. Sometimes just give way and fall down. This happened at least couple of times. Patient is found to have a small avulsion fracture of the lateral tibial plateau. Brace was put in the ER. Orthopedics was consulted. Patient has been feeling rather tired. Weak. Also patient blood glucose was noted to be running low. Patient states that she has been eating fine. October 04: Patient states she has been having some chronic low back pain. Seen by orthopedics Dr. Gonzalez. Ordered MRI of the lumbar spine. Patient could barely get up with physical therapy. Citing weakness in the thigh. No bowel trouble. No urine trouble. October 05: Laying in bed. Still feeling weakness numbness lower extremity. Saw the patient this morning. Was pending MRI at that time. Later MRI showing pathologic fracture of the superior endplate L2. Evidence for metastatic disease throughout the osseous structures with soft tissue component extending IV from the anterior sacrum towards the thecal sac at T12 as well as the level of left neural foramina at L1-L2. Multilevel DJD. Dr. Gonzalez from spine is on the case including oncology consulted. October 06: Saw the patient this morning. Cousin is present in the room. Broadly discussed the approach to malignancy treatment rehab etc. Later this afternoon patient underwent CT scan abdomen chest and pelvis. Was found to have a large right infrahilar mass extending into the subcarinal region lower lobe on the left side 8.8 x 5.9 cm. Obstructing the left lower bronchus causing atelectasis left lower lobe. Large pericardiac lymph node anteriorly. Calcification throughout the abdominal aorta. Osseous metastasis noted. I was called about the results by Dr. Lindsay from orthopedics. Given the complexity and MRI not available until at least tomorrow. He is planned to transfer the patient down to [facility]. He is initiated the process. Patient continues to feel weak in both the legs and numbness. Later today then again bone scan of the whole body was done. Found to have metastatic disease involving the calvarium bilateral ribs and spine. October 07: Met with the patient and her cousin at the bedside today. Patient [facility] not [facility] is too far away from family. She is leaning more towards hospice. She wants to go to the hospice house in [place]. Informational visit was done with them. Also communicated this with the oncology team. They want some input from them. Total time spent today over 1 hour with over 45 minutes of discussion. [Later oncology did speak to the patient and patient is opted to go to hospice.] Active Medications Acetaminophen (Acetaminophen Tab 325 Mg Tab) 650 mg PO Q6HR PRN PRN Reason: Mild Pain or Fever > 100.5 Hydrocodone Bitart/Acetaminophen (Hydrocodone/Apap 5-325mg 1 Each Tab) 1 each PO Q4HR PRN PRN Reason: Moderate Pain (Scale 4 to 6) Last Admin: 10/07/23 06:34 Dose: 1 each Albuterol/Ipratropium (Ipratropium-Albuterol 3 Ml Neb) 3 ml INHALATION RT-BID [facility] Last Admin: 10/07/23 11:52 Dose: 3 ml Calcium Carbonate/Glycine (Calcium Carbonate 500 Mg Chewable) 1,000 mg PO Q4HR PRN PRN Reason: Dyspepsia Clonidine (Clonidine Hcl 0.2 Mg Tab) 0.2 mg PO TID [facility] Last Admin: 10/07/23 16:24 Dose: 0.2 mg Cyanocobalamin (Cyanocobalamin 500 Mcg Tab) 1,000 mcg PO DAILY [facility] Last Admin: 10/07/23 11:15 Dose: 1,000 mcg Cyclobenzaprine HCl (Cyclobenzaprine 5 Mg Tab) 5 mg PO TID [facility] Last Admin: 10/07/23 16:24 Dose: 5 mg Dexamethasone Sodium Phosphate (Dexamethasone Sod Phosphate 10 Mg/Ml 1 Ml Vial) 6 mg IVP Q6H [facility] Last Admin: 10/07/23 16:24 Dose: 6 mg Dextrose/Water (Dextrose 50% Syringe 50 Ml) 25 ml IVP PER PROTOCOL PRN; Protocol PRN Reason: Hypoglycemia Dextrose/Water (Dextrose 50% Syringe 50 Ml) 50 ml IVP PER PROTOCOL PRN; Protocol PRN Reason: Hypoglycemia Sodium Chloride (Saline 0.9%) 1,000 mls @ 75 mls/hr IV .[id number] [facility] Last Admin: 10/07/23 11:47 Dose: Not Given Insulin Aspart (Insulin Aspart (Novolog) 100 Unit/Ml Vial) 0 unit SQ AC-TID SC H; Protocol Last Admin: 10/07/23 17:19 Dose: Not Given Lactulose (Lactulose 20 Gm/30 Ml Cup) 20 gm PO DAILY PRN PRN Reason: Constipation Lisinopril (Lisinopril 20 Mg Tab) 20 mg PO BID [facility] Last Admin: 10/07/23 11:15 Dose: 20 mg Lorazepam (Lorazepam 2 Mg/Ml Inj) 1 mg IV Q1HR PRN PRN Reason: CIWA 10 to 15 Lorazepam (Lorazepam 2 Mg/Ml Inj) 1 mg IV Q2HR PRN PRN Reason: CIWA 8 or 9 Magnesium Oxide (Magnesium Oxide 400 Mg Tab) 400 mg PO BID [facility] Last Admin: 10/07/23 11:15 Dose: 400 mg Morphine Sulfate (Morphine Sulfate 4 Mg/Ml Syringe) 4 mg IVP Q6HR PRN PRN Reason: Pain Scale 7 to 10 Last Admin: 10/07/23 11:22 Dose: 4 mg Naloxone HCl (Naloxone 0.4 Mg/Ml 1 Ml Vial) 0.2 mg IV Q2M PRN PRN Reason: Opioid Reversal Nicotine (Nicotine 21mg/24hr Patch) 1 patch TRANSDERM DAILY [facility] Last Admin: 10/07/23 11:18 Dose: Not Given Ondansetron HCl (Ondansetron 4 Mg/2 Ml Vial) 4 mg IVP Q8HR PRN PRN Reason: Nausea And Vomiting Pantoprazole Sodium (Pantoprazole 40 Mg/10 Ml Vial) 40 mg IVP BID [facility] Last Admin: 10/07/23 11:15 Dose: 40 mg Pravastatin Sodium (Pravastatin Sodium 80 Mg Tab) 80 mg PO DAILY [facility] Last Admin: 10/07/23 11:16 Dose: 80 mg Thiamine HCl (Thiamine 100 Mg Tab) 100 mg PO DAILY [facility] Last Admin: 10/07/23 11:16 Dose: 100 mg Venlafaxine HCl (Venlafaxine Hcl Er 75 Mg Cap) 75 mg PO DAILY [facility] Last Admin: 10/07/23 11:15 Dose: 75 mg Social history: Lives alone. Does have a walker. Smokes daily. Drinks about a gallon of whiskey a week. Physical examination: VITAL SIGNS: 97.4, 53, 15, 126 x 55, 97% room air GENERAL: Reclining in bed EYES: Pupils equal. Conjunctiva shana l. HEENT: External appearance of nose and ears normal, oral cavity grossly normal. NECK: JVD not raised; masses not palpable. HEART: First and second heart sounds are normal; no edema. LUNGS: Respiratory rate normal; decreased breath sounds. ABDOMEN: Soft, nontender, liver spleen not palpable, no masses palpable. PSYCH: [Patient sleepy but can answer questions.. MUSCULOSKELETAL:No Clubbing/cyanosis;muscles-grossly intact. OA NEUROLOGICAL: Cranial nerves grossly intact; no facial asymmetry, weakness and numbness of both lower extremity INVESTIGATIONS, reviewed in the clinical context: Thoracic spine MRI: Multiple masses were noted. Displacement of the thecal sac with severe spinal Stenosis at T4. Nuclear bone scan: Findings compatible with metastatic disease involving the calvarium, bilateral ribs and spine. CT scan abdomen chest pelvis:Was found to have a large right infrahilar mass extending into the subcarinal region lower lobe on the left side 8.8 x 5.9 cm. Obstructing the left lower bronchus causing atelectasis left lower lobe. Large pericardiac lymph node anteriorly. Calcification throughout the abdominal aorta. Osseous metastasis noted. MRI spine [pathological fracture superior endplate of L2. Evidence for metastatic disease throughout the osseous structures with soft tissue component extending away from the anterior sacrum and posterior lead towards the thecal sac at T12 as well as the level of the left neural foramina L1-L2. Multilevel DJD including L3-L4 and L4-L5 with severe spinal canal stenosis. October 05: Sodium 132 potassium 5 BUN 24 creatinine 1.07 UA: Leukoesterase positive WBC 182 squamous epithelial 46 October 03: White count 11 hemoglobin 14.4 platelets 216 sodium 129 potassium 4.8 BUN 20 creatinine 1.14 blood glucose 70. Accu-Chek 62, 68 Magnesium 1.3 AST 72 ALT 20 Influenza type A, B, RSV, COVID-19: Not detected Chest x-ray film personally reviewed by me-some hyperinflation. Some cardio megaly. Smoker Assessment and plan: -Acute on chronic low back pain causing falls: Pathological fracture superior endplate of L2. Evidence for metastatic disease throughout the osseous structures with soft tissue component extending away from the anterior sacrum and posterior lead towards the thecal sac at T12 as well as the level of the left neural foramina L1-L2. Multilevel DJD including L3-L4 and L4-L5 with severe spinal canal stenosis. Dr. Freida Gonzalez from orthopedic spine and Dr. Harmon from oncology following.. 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 Oncology following. Patient has opted for hospice care. -Alcohol use disorder Thiamine.. CIWA scale -Alcoholic hepatitis -Chronic nicotine dependence cigarette smoker Nicotine patch -COPD-current smoker DuoNeb twice daily -Right leg: Small avulsion fracture of the lateral tibial plateau second fracture as described above. Secondary to fall Being followed by orthopedics -Diabetes mellitus type 2, uncontrolled with hypoglycemia Accu-Cheks with sliding scale insulin. -Essential hypertension Cut back Zestril to 20 mg nightly -Depression anxiety Effexor XR 75 mg a day -Hyperlipidemia Pravachol 80 mg a day Patient is opted for hospice care. Hospice house tomorrow. If everything else falls in place for discharge. Past Medical History Past Medical History: Diabetes Mellitus, Hyperlipidemia, Hypertension, Rheumatoid Arthritis (RA), Sleep Apnea/CPAP/BIPAP History of Any Multi-Drug Resistant Organisms: None Reported Past Surgical History: No Surgical Hx Reported Past Psychological History: No Psychological Hx Reported Smoking Status: Current every day smoker Past Alcohol Use History: Daily Past Drug Use History: None Reported
[2023-10-07 20:59] LABS: Glucose,Whole Blood 181 mg/dL (70-110)
[2023-10-08 06:22] LABS: Glucose,Whole Blood 157 mg/dL (70-110)
[2023-10-08 09:20] VITALS: BMI 32.9
[2023-10-08 09:21] VITALS: BP 175/83; PULSE 62; RESP 18; TEMP 97.3
--- NOTE | 2023-10-08 11:29 | P.DS ---
Providers Date of admission: 10/03/23 16:18 Expected date of discharge: 10/08/23 Attending physician: Jovanni Stern Consults: 10/03/23 08:47 Consult Physician Routine Consulting Provider: Francois Upton Consult Reason/Comments: Tibial plateau fracture Do you want consulting provider notified?: Already Contacted 10/04/23 10:04 Consult Physician Routine Consulting Provider: Freida Gonzalez Consult Reason/Comments: weakness Do you want consulting provider notified?: Yes 10/05/23 13:55 Consult Physician Routine Consulting Provider: Minh Rice Consult Reason/Comments: bony metastasis, unknown primary Do you want consulting provider notified?: Yes 10/06/23 13:23 Consult Physician Routine Consulting Provider: Del Adhikari Consult Reason/Comments: symptomatic mass Do you want consulting provider notified?: Already Contacted Primary care physician: Colemarcia [facility] Course: Chief Complaint: Fall This is a 73-year-old patient, who was following with Dr. Epstein. Chronic stable medical conditions include diabetes, hyperlipidemia, hypertension, rheumatoid arthritis, obstructive sleep apnea. Patient also cigarette smoker and drinks about a gallon of whiskey a week. Patient is accompanied by her cousin in the room. Patient has been getting increasingly weak. Legs get weak. Sometimes just give way and fall down. This happened at least couple of times. Patient is found to have a small avulsion fracture of the lateral tibial plateau. Brace was put in the ER. Orthopedics was consulted. Patient has been feeling rather tired. Weak. Also patient blood glucose was noted to be running low. Patient states that she has been eating fine. October 04: Patient states she has been having some chronic low back pain. Seen by orthopedics Dr. Gonzalez. Ordered MRI of the lumbar spine. Patient could barely get up with physical therapy. Citing weakness in the thigh. No bowel trouble. No urine trouble. October 05: Laying in bed. Still feeling weakness numbness lower extremity. Saw the patient this morning. Was pending MRI at that time. Later MRI showing pathologic fracture of the superior endplate L2. Evidence for metastatic disease throughout the osseous structures with soft tissue component extending IV from the anterior sacrum towards the thecal sac at T12 as well as the level of left neural foramina at L1-L2. Multilevel DJD. Dr. Pasia from OA spine is on the case including oncology consulted. October 06: Saw the patient this morning. Cousin is present in the room. Broadly discussed the approach to malignancy treatment rehab etc. Later this afternoon patient underwent CT scan abdomen chest and pelvis. Was found to have a large right infrahilar mass extending into the subcarinal region lower lobe on the left side 8.8 x 5.9 cm. Obstructing the left lower bronchus causing atelectasis left lower lobe. Large pericardiac lymph node anteriorly. Calcification throughout the abdominal aorta. Osseous metastasis noted. I was called about the results by Dr. Lindsay from orthopedics. Given the complexity and MRI not available until at least tomorrow. He is planned to transfer the patient down to [facility]. He is initiated the process. Patient continues to feel weak in both the legs and numbness. Later today then again bone scan of the whole body was done. Found to have metastatic disease involving the calvarium bilateral ribs and spine. October 07: Met with the patient and her cousin at the bedside today. Patient does not want to go down to [facility] is too far away from family. She is leaning more towards hospice. She wants to go to the hospice house in [place]. Informational visit was done with them. Also communicated this with the oncology team. They want some input from them. Total time spent today over 1 hour with over 45 minutes of discussion. [Later oncology did speak to the patient and patient is opted to go to hospice.] October 08: Discussed with pt and cousin. Medications ordered. Plan for patient to go down to [facility] [place]. Questions answered. Increase Catapres 2.3 mg 3 times daily. Changed to Zestoretic. Twice daily.Back pain present Discussion and discharge planning more than 35 minutes Social history: Lives alone. Does have a walker. Smokes daily. Drinks about a gallon of whiskey a week. Physical examination: VITAL SIGNS: 97.3, 62, 18, 135/83, 95% room air GENERAL: Reclining in bed EYES: Pupils equal. Conjunctiva shana l. HEENT: External appearance of nose and ears normal, oral cavity grossly normal. NECK: JVD not raised; masses not palpable. HEART: First and second heart sounds are normal; no edema. LUNGS: Respiratory rate normal; decreased breath sounds. ABDOMEN: Soft, nontender, liver spleen not palpable, no masses palpable. PSYCH: [Patient sleepy but can answer questions.. MUSCULOSKELETAL:No Clubbing/cyanosis;muscles-grossly intact. OA NEUROLOGICAL: Cranial nerves grossly intact; no facial asymmetry, weakness and numbness of both lower extremity INVESTIGATIONS, reviewed in the clinical context: Thoracic spine MRI: Multiple masses were noted. Displacement of the thecal sac with severe spinal Stenosis at T4. Nuclear bone scan: Findings compatible with metastatic disease involving the calvarium, bilateral ribs and spine. CT scan abdomen chest pelvis:Was found to have a large right infrahilar mass extending into the subcarinal region lower lobe on the left side 8.8 x 5.9 cm. Obstructing the left lower bronchus causing atelectasis left lower lobe. Large pericardiac lymph node anteriorly. Calcification throughout the abdominal aorta. Osseous metastasis noted. MRI spine [pathological fracture superior endplate of L2. Evidence for metastatic disease throughout the osseous structures with soft tissue component extending away from the anterior sacrum and posterior lead towards the thecal sac at T12 as well as the level of the left neural foramina L1-L2. Multilevel DJD including L3-L4 and L4-L5 with severe spinal canal stenosis. October 05: Sodium 132 potassium 5 BUN 24 creatinine 1.07 UA: Leukoesterase positive WBC 182 squamous epithelial 46 October 03: White count 11 hemoglobin 14.4 platelets 216 sodium 129 potassium 4.8 BUN 20 creatinine 1.14 blood glucose 70. Accu-Chek 62, 68 Magnesium 1.3 AST 72 ALT 20 Influenza type A, B, RSV, COVID-19: Not detected Chest x-ray film personally reviewed by me-some hyperinflation. Some cardiomegaly. Smoker Assessment and plan: -Acute on chronic low back pain causing falls: Pathological fracture superior endplate of L2. Evidence for metastatic disease throughout the osseous structures with soft tissue component extending away from the anterior sacrum and posterior lead towards the thecal sac at T12 as well as the level of the left neural foramina L1-L2. Multilevel DJD including L3-L4 and L4-L5 with severe spinal canal stenosis. Dr. Freida Gonzalez from orthopedic spine and Dr. Harmon from oncology following.. 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 Oncology following. Patient has opted for hospice care. -Alcohol use disorder Thiamine.. CIWA scale -Alcoholic hepatitis -Chronic nicotine dependence cigarette smoker Nicotine patch -COPD-current smoker DuoNeb twice daily -Right leg: Small avulsion fracture of the lateral tibial plateau second fracture as described above. Secondary to fall Being followed by orthopedics -Diabetes mellitus type 2, uncontrolled with hypoglycemia Accu-Cheks with sliding scale insulin. -Essential hypertension. A bit uncontrolled Change Zestoretic 20/12.5 twice daily. Increase Catapres 0.3 mg 3 times daily. -Depression anxiety Effexor XR 75 mg a day -Hyperlipidemia Pravachol 80 mg a day -DNR Disposition: [facility] Past Medical History Past Medical History: Diabetes Mellitus, Hyperlipidemia, Hypertension, Rheumatoid Arthritis (RA), Sleep Apnea/CPAP/BIPAP History of Any Multi-Drug Resistant Organisms: None Reported Past Surgical History: No Surgical Hx Reported Past Psychological History: No Psychological Hx Reported Smoking Status: Current every day smoker Past Alcohol Use History: Daily Past Drug Use History: None Reported Health Concerns: Has history of chronic alcohol use and drinks up to a gallon of whiskey each month. She is a chronic smoker. She has a long history of low back pain lower extreme radicular symptoms. Plan - Discharge Summary Discharge Rx Participant: No New Discharge Prescriptions: New Lactulose [Cephulac] 20 gm PO DAILY PRN ml PRN Reason: Constipation dexAMETHasone [Decadron] 4 mg PO TID #1 tab Nicotine 21Mg/24Hr Patch [Habitrol] 1 patch TRANSDERM DAILY patch HYDROcodone/APAP 5-325MG [[place] 5-325] 1 each PO Q4HR PRN tab PRN Reason: Moderate Pain (Scale 4 To 6) Pantoprazole Sodium [Protonix] 40 mg PO BID #1 tab Acetaminophen Tab [Tylenol] 650 mg PO Q6HR PRN tab PRN Reason: Mild Pain Or Fever > 100.5 Thiamine [Vitamin B-1] 100 mg PO DAILY tab cloNIDine HCL [Clonidine HCl] 0.3 mg PO TID #1 tab Ipratropium-Albuterol Nebulize [Duoneb 0.5 mg-3 mg/3 ml Soln] 3 ml INHALATION RT-BID each Cyclobenzaprine [Flexeril] 5 mg PO TID tab Naproxen 250 mg PO TID #1 tab Lisinopril-Hctz 20-12.5 mg [Zestoretic 20-12.5] 1 tab PO BID #1 tab Continue Cyanocobalamin (Vitamin B-12) [Vitamin B-12] 1,000 mcg PO DAILY metFORMIN HCL 1,000 mg PO BID Venlafaxine HCl [Effexor XR] 75 mg PO DAILY Pravastatin Sodium [Pravachol] 80 mg PO DAILY Discontinued nadoloL 40 mg PO BID Ergocalciferol (Vitamin D2) [Drisdol (50,000 Iu)] 1,250 mcg PO SPRINGER lisinopriL [Zestril] 20 mg PO BID Ibuprofen [Motrin] 800 mg PO Q8H PRN PRN Reason: Pain Or Fever > 100.5 Repaglinide [Prandin] 1 mg PO AC-BID Discharge Medication List Cyanocobalamin (Vitamin B-12) [Vitamin B-12] 1,000 mcg PO DAILY 10/03/23 [History] Pravastatin Sodium [Pravachol] 80 mg PO DAILY 10/03/23 [History] Venlafaxine HCl [Effexor XR] 75 mg PO DAILY 10/03/23 [History] metFORMIN HCL 1,000 mg PO BID 10/03/23 [History] Acetaminophen Tab [Tylenol] 650 mg PO Q6HR PRN tab 10/08/23 [Rx] Cyclobenzaprine [Flexeril] 5 mg PO TID tab 10/08/23 [Rx] HYDROcodone/APAP 5-325MG [[place] 5-325] 1 each PO Q4HR PRN tab 10/08/23 [Rx] Ipratropium-Albuterol Nebulize [Duoneb 0.5 mg-3 mg/3 ml Soln] 3 ml INHALATION RT-BID each 10/08/23 [Rx] Lactulose [Cephulac] 20 gm PO DAILY PRN ml 10/08/23 [Rx] Lisinopril-Hctz 20-12.5 mg [Zestoretic 20-12.5] 1 tab PO BID #1 tab 10/08/23 [Rx] Naproxen 250 mg PO TID #1 tab 10/08/23 [Rx] Nicotine 21Mg/24Hr Patch [Habitrol] 1 patch TRANSDERM DAILY patch 10/08/23 [Rx] Pantoprazole Sodium [Protonix] 40 mg PO BID #1 tab 10/08/23 [Rx] Thiamine [Vitamin B-1] 100 mg PO DAILY tab 10/08/23 [Rx] cloNIDine HCL [Clonidine HCl] 0.3 mg PO TID #1 tab 10/08/23 [Rx] dexAMETHasone [Decadron] 4 mg PO TID #1 tab 10/08/23 [Rx] Follow up Appointment(s)/Referral(s): None,Stated [REFERRING] - 1-2 days Discharge/Stand Alone Forms: Who Do I Call?, Area PCPs Discharge Disposition: DISCH TO HOSPICE MED FACILTY
[2023-10-08 12:54] LABS: Glucose,Whole Blood 174 mg/dL (70-110)
== END 2023-10-08 15:08 | disposition hospice, home (50) | DRG 181 ==
LOC: EC 05:46 → 6NMEDSUR 08:27 → INTOOBSV 16:18 → OBSVTOIN 16:18
PROVIDERS: ADMIT Hospitalist; ATTEND Hospitalist
PROC: HZ2ZZZZ Detoxification Services for Substance Abuse Treatment (ICD-10-PCS; principal; 2023-10-03)
DX: C34.90 Malignant neoplasm of unspecified part of unspecified bronchus or lung (principal); C78.7 Secondary malignant neoplasm of liver and intrahepatic bile duct; S82.141A Displaced bicondylar fracture of right tibia, initial encounter for closed fracture; C79.51 Secondary malignant neoplasm of bone; M84.48XA Pathological fracture, other site, initial encounter for fracture; E87.1 Hypo-osmolality and hyponatremia; G72.1 Alcoholic myopathy; R29.6 Repeated falls; F10.20 Alcohol dependence, uncomplicated; F17.210 Nicotine dependence, cigarettes, uncomplicated; E11.649 Type 2 diabetes mellitus with hypoglycemia without coma; I10 Essential (primary) hypertension; F32.A Depression, unspecified; Z11.52 Encounter for screening for COVID-19; F41.9 Anxiety disorder, unspecified; E78.5 Hyperlipidemia, unspecified; G89.29 Other chronic pain; R33.8 Other retention of urine; E83.42 Hypomagnesemia; K70.10 Alcoholic hepatitis without ascites; J44.9 Chronic obstructive pulmonary disease, unspecified; E86.0 Dehydration; I25.10 Atherosclerotic heart disease of native coronary artery without angina pectoris; Z88.0 Allergy status to penicillin; E11.42 Type 2 diabetes mellitus with diabetic polyneuropathy; M06.9 Rheumatoid arthritis, unspecified; M48.04 Spinal stenosis, thoracic region; M48.061 Spinal stenosis, lumbar region without neurogenic claudication; M54.16 Radiculopathy, lumbar region; Z79.899 Other long term (current) drug therapy; Z79.84 Long term (current) use of oral hypoglycemic drugs; Z91.81 History of falling; M47.896 Other spondylosis, lumbar region; Z66 Do not resuscitate; W19.XXXA Unspecified fall, initial encounter; Z51.5 Encounter for palliative care
CPT/HCPCS: 36415; 71046; 71260; 72100; 72146; 72148; 74177; 78306; 80048; 80053; 80320; 81001; 82550; 83036; 83735; 85025; 87040; 87636; 93306; 94640; 96365; 96375; 96376; 99285